=== PATIENT | male | born 1960 | race Caucasian/White ===

== ENCOUNTER 2020-11-17 17:35 | Emergency (ER) | payer MEDICAID, SELFPAY ==
[2020-11-17 17:35] VITALS: BP 142/86; PULSE 77; RESP 16; TEMP 36.8; O2SAT 98; BMI 23.6
--- NOTE | 2020-11-17 19:29 | PC.NURSE ---
pt attempted to walk out of exam room, refusing staff to obtain samples ordered by physician. Pt states I am done, I am leaving . Dr notified. Physician spoke with pt who agrees to sign AMA paperwork. Pt verbalized understanding of risks of leaving AMA and that he may return to ED to re-evaluated. Paperwork signed, witnessed by staff
--- NOTE | 2020-11-17 23:57 | W.ED.AMS ---
HPI - Altered Mental Status General: Chief Complaint: Altered Mental Status Stated Complaint: AMS Time Seen by Provider: 11/17/20 18:23 Source: patient and EMS Mode of arrival: EMS Limitations: no limitations History of Present Illness: HPI narrative: The patient is a 60-year-old male who was brought in by EMS with concerns for altered mental status. Apparently he was wandering in his shorts and so he was brought in for evaluation. In the ED the patient is alert and oriented and states he has no complaints. He says he does not want to be in the emergency department. I was able to convince him to allow us to run some test to see if he has any issues, he initially agreed but then later refused. He denies any chest pain, headaches, dizziness, shortness of breath. Review of Systems General: Reports: 10 or more systems reviewed and unremarkable except in HPI and below Const: Denies: fever(s), chills or body aches Eyes: Denies: change in vision or blurry vision ENMT: Denies: throat pain, enlarged tonsils, odynophagia, hoarseness, mouth pain or swelling of lips/tongue Card: Denies: palpitations, irregular heart rhythm, edema or swelling of feet/ankles Resp: Denies: dyspnea, productive cough or non-productive cough GI: Denies: abdominal pain, nausea or vomiting : Denies: flank pain, dysuria, urinary frequency, urinary urgency or urinary hesitancy Musc: Denies: neck pain, back pain or extremity swelling Skin/Breast: Denies: rash, pruritus or erythema Neuro: Denies: headache(s), numbness in extremities or weakness in extremities Endo: Denies: polyuria, polydipsia or tired all the time Physical Exam Const: COMMON NORMALS: no acute distress, average body habitus, patient oriented x3, no limitations, healthy appearing, alert and well nourished HENMT: COMMON NORMALS: normocephalic, atraumatic and moist oral mucous membranes HEAD & SCALP: normocephalic and atraumatic Eye: COMMON NORMALS: Equal, round and reactive pupils present, EOMs intact bilaterally, conjunctivae normal and no scleral icterus CONJUNCTIVA: Yes conjunctivae normal PUPIL: Yes Equal, round and reactive pupils present Neck/C-Spine: COMMON NORMALS: full ROM, supple, no meningeal signs, no JVD and No carotid bruits Chest: COMMONS NORMALS: normal inspection of the chest and normal palpation of entire chest wall Resp: COMMON NORMALS: normal respiratory effort, No retractions, No use of accessory muscles, clear to auscultation bilaterally and percussion normal AUSCULTATION: clear to auscultation bilaterally PERCUSSION: percussion normal Cardio: COMMON NORMALS: no JVD, regular rate, regular rhythm, S1 normal heart sound present, S2 normal heart sound present, No gallops present (Cardio), No clicks present (Cardio), No murmurs present (Cardio), No rub (Cardio) and Peripheral pulses 2+ throughout RATE: regular rate RHYTHM: regular rhythm HEART SOUNDS: S1 normal heart sound present and S2 normal heart sound present PERIPHERAL PULSES: Peripheral pulses 2+ throughout GI: COMMON NORMALS: Normal to inspection, nondistended, normoactive bowel sounds present, Soft to palpation, non-tender, No hepatosplenomegaly present, no masses and no bruits PALPATION: Yes Soft to palpation and Yes No hepatosplenomegaly present : COMMON NORMALS: Yes no CVA tenderness BLADDER/KIDNEY EXAM: Yes no CVA tenderness Back/Pelvis: COMMON NORMALS: no CVA tenderness Extremity: COMMON NORMALS: normal to inspection, full ROM, capillary refill normal, no calf tenderness and no pedal edema Neuro: COMMON NORMALS: patient oriented x3 SENSORIUM/ORIENTATION: Yes alert MENINGEAL SIGNS: Yes no meningeal signs Skin: COMMON NORMALS: no rashes or lesions noted, no wounds, turgor normal, no jaundice, no petechiae and no mottling GENERAL SKIN EXAM: no rashes or lesions noted and turgor normal Course Vital Signs: Vital signs: Vital Signs Temperature 98.2 F 11/17/20 17:35 Pulse Rate 77 11/17/20 17:35 Respiratory Rate 16 11/17/20 17:35 Blood Pressure 142/86 11/17/20 17:35 Pulse Oximetry 98 11/17/20 17:35 MDM - Altered Mental Status MDM Narrative: Medical decision making narrative: 60-year-old male who was brought in by EMS with concerns for altered mental status. When I evaluated the patient he was alert and oriented, was able to answer all my questions appropriately. He however did not want to be seen in the emergency department and refused testing, imaging, and the evaluation. He allowed me to examine him, initially agreed to be tested but then eventually declined. He says he does not like hospitals and doctors and so wanted to leave AGAINST MEDICAL ADVICE. I explained to him the risks involved including potential for a serious life threatening illness with medical cause serious morbidity and , however he still insisted on being discharged and signed out AGAINST MEDICAL ADVICE. Because he is alert oriented and is able in my opinion to make sound medical decisions he was allowed to sign out AGAINST MEDICAL ADVICE. Medical Records: Attestation: I reviewed the patient's medical records. Lab Data: Attestation: I reviewed the patient's lab results. Discharge Plan Discharge Patient Disposition: Left Against Medical Advice Clinical Impression: Wandering Coding Level of Care Code ED Energy Conservation Representative for Maria Antonia Lacy
== END 2020-11-17 19:32 | disposition left against medical advice (07) ==
LOC: ER 18:56
PROVIDERS: Emergency Provider Family Medicine
DX: Z91.83 Wandering in diseases classified elsewhere (principal); R41.82 Altered mental status, unspecified; Z53.21 Procedure and treatment not carried out due to patient leaving prior to being seen by health care provider
CPT/HCPCS: 12345; 99281

== ENCOUNTER 2020-11-26 21:06 | Emergency (ER) | payer MEDICAID, SELFPAY ==
--- NOTE | 2020-11-26 21:09 | XR_ITS ---
WS: [id number] Left wrist, 3 views, 11/26/2020 Clinical Data: fll Comparison: None. Findings: No fractures or dislocations are seen. The carpal bones are intact. There is no soft tissue swelling. The distal radius and ulna are not remarkable. XR/XR wrist LT min 3V* [id number] Impression: Negative left wrist.
--- NOTE | 2020-11-26 21:09 | XR_ITS ---
WS: [id number] Right wrist, 3 views, 11/26/2020 Clinical Data: fall Comparison: None. Findings: No fractures or dislocations are seen. The carpal bones are intact. There is no soft tissue swelling. The distal radius and ulna are not remarkable. There is calcification in the barrientos of the small vessels. XR/XR wrist RT min 3V* [id number] Impression: Negative right wrist.
--- NOTE | 2020-11-26 21:09 | CTR_ITS ---
PROCEDURE INFORMATION: Exam: CT Head Without Contrast Exam date and time: 11/26/2020 9:10 PM Age: 60 years old Clinical indication: Injury or trauma; Blunt trauma (contusions or hematomas); Patient HX: Fall with blow to back of head. ; Additional info: LYNNE TECHNIQUE: Imaging protocol: Computed tomography of the head without contrast. Radiation optimization: All CT scans at this facility use at least one of these dose optimization techniques: automated exposure control; mA and/or kV adjustment per patient size (includes targeted exams where dose is matched to clinical indication); or iterative reconstruction. COMPARISON: No relevant prior studies available. RADIATION DOSE METRICS: Total DLP (mGy-cm): 781.38 FINDINGS: Brain: Mild cerebral cortical atrophy. No intracranial hemorrhage. No intracranial mass. No mass effect on brain. No midline shift of brain. No basilar cisternal effacement. No acute brain ischemia. No cerebral sulcal effacement. Cerebral ventricles: No ventriculomegaly. Bones/joints: Unremarkable. No acute fracture. Paranasal sinuses: Visualized sinuses are unremarkable. No fluid levels. Mastoid air cells: Visualized mastoid air cells are well aerated. Soft tissues: Unremarkable. CT/CT head wo con* [id number] IMPRESSION: Negative for intracranial injury. Radiation Dose CTDIVOL = (mGy): DLP = 781.38 (mGy-cm)
[2020-11-26 21:13] VITALS: BP 158/84; PULSE 110; RESP 18; TEMP 36.6; O2SAT 96; BMI 25.9
--- NOTE | 2020-11-26 22:00 | W.ED.FALL ---
HPI - Fall General: Chief Complaint: Fall Stated Complaint: FELL ON ICE, BILATERAL WRIST PAIN, HEAD PAIN Time Seen by Provider: 11/26/20 21:58 Source: patient Mode of arrival: ambulatory Limitations: no limitations History of Present Illness: HPI Narrative: Patient is a 60-year-old male who presents to ED today for evaluation following a slip and fall. Patient tells me he was on a sidewalk walking when he accidentally slipped and fell on ice. Patient states he struck the back of his head. There was no LOC. Patient is complaining of bilateral wrist pain. He denies neck or back pain. Patient has been ambulatory without difficulty since the fall. complaint: fall Onset (ago): hour(s) Fall from: standing Fall witnessed: no Place fall occurred: street Loss of consciousness: None Prolonged down time: no Symptoms prior to fall: none Context: tripped/slipped Location of injury: head Location of injury - extremities: Bilateral: arm (wrist ) Associated symptoms-after fall: Reports no associated symptoms and headache(s); Denies abdominal pain, chest pain, confusion, difficulty walking or neck pain Review of Systems Eyes: Denies: change in vision, blurry vision, photophobia, floaters or seeing flashes Card: Denies: chest pain Resp: Denies: dyspnea GI: Denies: abdominal pain, nausea or vomiting Musc: Reports: joint pain (bilateral wrist); Denies: neck pain, back pain, extremity pain, extremity swelling or joint swelling Neuro: Reports: headache(s); Denies: numbness in extremities, weakness in extremities, sensory changes, difficulty walking, dizziness, confusion, Slurred speech present or seizure-like activity Physical Exam Const: COMMON NORMALS: no acute distress, average body habitus, patient oriented x3, no limitations, healthy appearing, alert and well nourished GENERAL APPEARANCE: cooperative ORIENTATION/CONSCIOUSNESS: Yes awake, Yes oriented to person, Yes oriented to place and Yes oriented to time HENMT: COMMON NORMALS: normocephalic and atraumatic HEAD & SCALP: normocephalic and atraumatic Neck/C-Spine: COMMON NORMALS: full ROM CERVICAL SPINE: Yes cervical ROM normal, No Cervical spine tenderness and No Paracervical muscle tenderness Chest: COMMONS NORMALS: normal inspection of the chest and normal palpation of entire chest wall Resp: COMMON NORMALS: normal respiratory effort and clear to auscultation bilaterally AUSCULTATION: clear to auscultation bilaterally Cardio: COMMON NORMALS: regular rate and regular rhythm RATE: regular rate RHYTHM: regular rhythm Back/Pelvis: COMMON NORMALS: thoracic and lumbar spine normal to inspection, no thoracic nor lumbar tenderness and thoraco-lumbar ROM normal Extremity: GENERAL: Yes normal exam except as noted OTHER: TTP R wrist joint; pt maintains full ROM; NV intact; he has tenderness throughout L wrist joint; dec ROM-very poor effort noted by patient; no deformity; NV intact Neuro: DIPESH COMA SCALE: document [facility] findings Dipesh coma scale eye opening: Spontaneous Dipesh coma scale verbal response: Orientated Grace coma scale motor response: Obey commands Grace coma scale total score: 15 COMMON NORMALS: patient oriented x3, CN's II-XII intact bilaterally, moves all extremities, no focal motor deficits, no sensory deficits noted and gait normal SENSORIUM/ORIENTATION: Yes alert, Yes oriented to person, Yes oriented to place and Yes oriented to time Skin: COMMON NORMALS: no rashes or lesions noted GENERAL SKIN EXAM: no rashes or lesions noted Course Vital Signs: Vital signs: Vital Signs Temperature 97.9 F 11/26/20 21:13 Pulse Rate 110 H 11/26/20 21:13 Respiratory Rate 18 11/26/20 21:13 Blood Pressure 158/84 11/26/20 21:13 Pulse Oximetry 96 11/26/20 21:13 MDM - Fall Imaging Data^: CT Head: Radiologist's impression: [address] [address] [address] Scan Report Signed Patient: David Harvey Unit #: [id number] : 1960 Age/Sex: 60 / M ADM Date: 11/26/20 Loc: ER Room/Bed: Attending Dr: Ordering Provider/Ordering MD: Ariadne Young MD Date of Service: 11/26/20 Procedure(s): CT head wo con* [id number] Accession Number(s): [id number] Report Number: [id number] PROCEDURE INFORMATION: Exam: CT Head Without Contrast Exam date and time: 11/26/2020 9:10 PM Age: 60 years old Clinical indication: Injury or trauma; Blunt trauma (contusions or hematomas); Patient HX: Fall with blow to back of head. ; Additional info: LYNNE TECHNIQUE: Imaging protocol: Computed tomography of the head without contrast. Radiation optimization: All CT scans at this facility use at least one of these dose optimization techniques: automated exposure control; mA and/or kV adjustment per patient size (includes targeted exams where dose is matched to clinical indication); or iterative reconstruction. COMPARISON: No relevant prior studies available. RADIATION DOSE METRICS: Total DLP (mGy-cm): 781.38 FINDINGS: Brain: Mild cerebral cortical atrophy. No intracranial hemorrhage. No intracranial mass. No mass effect on brain. No midline shift of brain. No basilar cisternal effacement. No acute brain ischemia. No cerebral sulcal effacement. Cerebral ventricles: No ventriculomegaly. Bones/joints: Unremarkable. No acute fracture. Paranasal sinuses: Visualized sinuses are unremarkable. No fluid levels. Mastoid air cells: Visualized mastoid air cells are well aerated. Soft tissues: Unremarkable. CT/CT head wo con* [id number] IMPRESSION: Negative for intracranial injury. Radiation Dose CTDIVOL = (mGy): DLP = 781.38 (mGy-cm) Dictated By: Rahul Rodas Signed By: Rahul Rodas Signed Date/Time: 11/26/202141 DD/ 40 XR L and R wrist : My impression: NAD Discharge Plan Discharge Patient Disposition: Home Clinical Impression: Bilateral wrist pain Fall from slipping on ice Qualifiers: Encounter type: initial encounter Qualified Code(s): W00.9XXA - Unspecified fall due to ice and snow, initial encounter Contusion of scalp Qualifiers: Encounter type: initial encounter Qualified Code(s): S00.03XA - Contusion of scalp, initial encounter Condition: Stable Discharge Orders: Discharge ED (Routine); Ordered 11/26/20 Ordered By: Alessia Domínguez Referrals: Thomas Gan [Primary Care Provider] - Patient Instructions: Opioid Safety Activity Restrictions/Additional Instructions: [facility] is committed to fighting the nationwide opiate epidemic. We are providing ALL patients with information regarding opiate safety. If you received opiate pain medication during your stay or if you received a prescription for opiate pain medication-please review this handout. If not, you may disregard. Thank you. Coding Level of Care Code ED Geothermal Powerplant Mechanic Helper for Chg Fwd Exam Comprehensive
== END 2020-11-26 22:47 | disposition home or self-care (01) ==
PROVIDERS: Emergency Provider Physician Assistant; PCP Family Medicine
DX: S00.03XA Contusion of scalp, initial encounter (principal); M25.532 Pain in left wrist; M25.531 Pain in right wrist; W00.0XXA Fall on same level due to ice and snow, initial encounter
CPT/HCPCS: 29125; 70450; 73110; 99283

== ENCOUNTER → 2020-12-04 09:43 | Outpatient (BNVA) | payer MEDICAID, SELFPAY | PROVIDERS: PCP Family Medicine; Visit Provider Counselor Professional | DX: F31.12 Bipolar disorder, current episode manic without psychotic features, moderate (principal) | CPT/HCPCS: 90791 ==

== ENCOUNTER 2020-12-06 15:33 | Emergency (ER) | payer MEDICAID, SELFPAY ==
[2020-12-06 15:38] VITALS: BP 147/76; PULSE 104; RESP 16; TEMP 36.9; O2SAT 96; BMI 25.2
--- NOTE | 2020-12-06 16:06 | ED_ITS ---
HPI - Extremity Problem General: Chief complaint: Extremity Problem,Nontraumatic Stated complaint: BLE PROBLEMS Time Seen by Provider: 12/06/20 15:45 Source: patient Mode of arrival: ambulatory Limitations: no limitations History of Present Illness: HPI Narrative: Patient comes in today for complaints of dry skin and blisters to his his feet. Patient has been walking for the last 1 month for a protest. Patient does have a history of bipolar disorder. Patient is calm and rational during the exam. Patient denies any wish to harm himself or others. Patient complains of some blisters to his feet and dry skin. Patient appears well. Patient appears in no acute distress. Review of Systems General: Reports: 10 or more systems reviewed and unremarkable except in HPI and below Skin/Breast: Reports: other (Blisters to his feet, and dry skin to his lower extremities.) Physical Exam Const: COMMON NORMALS: no acute distress and patient oriented x3 GENERAL APPEARANCE: cooperative HENMT: COMMON NORMALS: normocephalic and Normal external nose present HEAD & SCALP: normal to inspection and normocephalic NOSE: Normal external nose present Eye: GENERAL EYE: appearance normal, both eyes and all related structures Neck/C-Spine: COMMON NORMALS: full ROM Lymph: LYMPHATIC: no lymphadenopathy noted Chest: COMMONS NORMALS: normal inspection of the chest Resp: COMMON NORMALS: normal respiratory effort EFFORT & INSPECTION: Yes able to speak in complete sentences Cardio: COMMON NORMALS: regular rate and regular rhythm RATE: regular rate RHYTHM: regular rhythm GI: COMMON NORMALS: non-tender Extremity: COMMON NORMALS: normal to inspection Neuro: COMMON NORMALS: patient oriented x3 and moves all extremities Psych: COMMON NORMALS: mental status grossly normal and cooperative Skin: NARRATIVE SKIN EXAM: Patient has some significantly dry flaking skin to the lower extremities bilaterally, hands, and dorsal feet. Patient also has some blisters to the toes of each of his feet. No signs of infection is noted. Course Vital Signs: Vital signs: Vital Signs Temperature 98.5 F 12/06/20 15:38 Pulse Rate 104 H 12/06/20 15:38 Respiratory Rate 16 12/06/20 15:38 Blood Pressure 147/76 12/06/20 15:38 Pulse Oximetry 96 12/06/20 15:38 MDM - Extremity (Nontraumatic) MDM Narrative: Medical decision making narrative: Pleasant gentleman comes in today for complaints of dry skin and itching and some blisters to his feet. Examination of the blisters note no significant redness or inflammation. They appear to be healing blisters secondary to correction. Patient reported that he has been walking quite a bit over the last 2 weeks protesting a walker for hope . Patient has significantly dry skin to his hands and to his lower extremities. Pulses are intact. No signs of significant injury or illness. Differential diagnosis includes stasis dermatitis, Delatorre itch, eczema, friction blisters, diabetic ulcers. Patient denied diabetes. Wounds appear healing without any signs of infection. Dry skin is probably due to patient's exposure to the cold causing delatorre itch/eczema type syndrome. We will prescribe some Lac-Hydrin lotion for patient to use twice a day to his skin to help with the itch. I also discussed the use of good emollient lotions or Vaseline. I reviewed care instructions for friction blisters including changing socks frequently and resting feet frequently. Patient reported understanding of care plan and need for follow-up or return. Discharge Plan Discharge Patient Disposition: Home Clinical Impression: Winter itch Blister of foot Qualifiers: Encounter type: initial encounter Laterality: unspecified laterality Qualified Code(s): S90.829A - Blister (nonthermal), unspecified foot, initial encounter Condition: Stable Prescriptions: New Lac-Hydrin Five 5 % lotion 1 applic topical BID PRN (Reason: dry skin) Qty: 226 RF: 1 No Action gabapentin 400 mg capsule 400 mg PO DAILY RF: 0 baclofen 10 mg tablet 10 mg PO DAILY RF: 0 aripiprazole [Abilify] 5 mg tablet 5 mg PO DAILY RF: 0 hydrocodone-acetaminophen 10-300 mg tablet 1 tab PO Q8H PRNRF: 0 omeprazole 20 mg capsule,delayed release(DR/EC) 20 mg PO DAILY RF: 0 omega-3 fatty acids [Fish Oil Concentrate] 1,000 mg capsule 1,000 mg PO DAILY RF: 0 trazodone 150 mg tablet 150 mg PO DAILY RF: 0 Centrum Silver Men 300-600-300 mcg tablet 1 tab PO DAILY RF: 0 Discharge Orders: Discharge ED (Routine); Ordered 12/06/20 Ordered By: Calderon Garibay Referrals: Thomas Gan [Primary Care Provider] - Discharge Diet: Usual diet Discharge Activity: Increase activity as tolerated Patient Instructions: Eczema (ED), Opioid Safety Activity Restrictions/Additional Instructions: Use a good lotion or Vaseline to the skin to keep the skin moist during the winter months. This will help significantly with itching of the skin. Change socks frequently and try to get properly fitting shoes. Drink plenty of water. Follow-up with primary care. Return to the emergency department for new concerns. Coding Level of Care Code ED Air Launch Weapons Technician for Maria Antonia Lacy
--- NOTE | 2020-12-07 14:01 | DCPLANNER ---
scanning manager had message to speak with patient due to not having a place to stay and being homeless. scanning manager called phone number [phone], unable to speak with patient and unable to leave a voicemail for patient. Voicemail box was full.
== END 2020-12-06 16:23 | disposition home or self-care (01) ==
PROVIDERS: Emergency Provider Nurse Practitioner Family; PCP Family Medicine
DX: L29.8 Other pruritus (principal); S90.822A Blister (nonthermal), left foot, initial encounter; S90.821A Blister (nonthermal), right foot, initial encounter; X58.XXXA Exposure to other specified factors, initial encounter
CPT/HCPCS: 99281

== ENCOUNTER 2020-12-06 23:13 | Emergency (ER) | payer MEDICAID, SELFPAY ==
--- NOTE | 2020-12-06 23:18 | ED_ITS ---
HPI - Extremity Problem General: Chief complaint: General Medical Stated complaint: WRIST PAIN Time Seen by Provider: 12/06/20 23:18 Source: patient and EMS Mode of arrival: ambulatory Limitations: no limitations History of Present Illness: HPI Narrative: 60-year-old male patient presents to the emergency department via EMS. He is complaining of bilateral feet pain. He reports has walked from [facility] to the [facility], has been kicked out of the homeless senior living and has no place to go to stay the night. He presents to the emergency department due to continued pain of his feet and inability to fill his medication prescribed earlier today. He denies further injury or new complaints. MD Complaint: extremity pain Location: left, right and lower extremity Quality: aching Relieving factors: immobilization and rest Exacerbating factors: weight bearing and walking Associated symptoms: Reports no associated symptoms; Deny chest pain, fever(s) or rash Context: other (Homeless status, large amount of walking) Review of Systems General: Reports: 10 or more systems reviewed and unremarkable except in HPI and below Const: Denies: fever(s), chills or diaphoresis Eyes: Denies: blurry vision or eye redness ENMT: Denies: throat pain, dental pain or disequilibrium Card: Denies: chest pain, palpitations or irregular heart rhythm Resp: Denies: dyspnea, productive cough, non-productive cough or wheezing GI: Denies: abdominal pain, nausea or vomiting : Denies: dysuria Musc: Reports: joint stiffness (Left wrist); Denies: neck pain, back pain, joint pain, muscle cramps or muscle weakness Skin/Breast: Reports: pruritus, erythema, skin tenderness and changes in skin color; Denies: rash Neuro: Denies: headache(s), weakness in extremities or behavioral changes Psych: Denies: anxiety, depression or change in appetite Warren/Lymph: Denies: easy bruising Physical Exam Const: COMMON NORMALS: no acute distress, patient oriented x3, healthy appearing and alert GENERAL APPEARANCE: cooperative, comfortable and well hydrated HENMT: COMMON NORMALS: normocephalic, Normal external nose present and moist oral mucous membranes HEAD & SCALP: normocephalic NOSE: Normal external nose present Eye: COMMON NORMALS: Equal, round and reactive pupils present and EOMs intact bilaterally GENERAL EYE: appearance normal, both eyes and all related structures PUPIL: Yes Equal, round and reactive pupils present Neck/C-Spine: COMMON NORMALS: full ROM and no lymphadenopathy GENERAL: Yes normal visual inspection and Yes trachea midline CERVICAL SPINE: Yes cervical ROM normal Lymph: LYMPHATIC: no lymphadenopathy noted Chest: COMMONS NORMALS: normal inspection of the chest and normal palpation of entire chest wall Resp: COMMON NORMALS: normal respiratory effort and clear to auscultation bilaterally AUSCULTATION: clear to auscultation bilaterally Cardio: COMMON NORMALS: regular rhythm, S1 normal heart sound present and S2 normal heart sound present RHYTHM: regular rhythm HEART SOUNDS: S1 normal heart sound present and S2 normal heart sound present GI: COMMON NORMALS: Soft to palpation and non-tender INSPECTION: Yes normal to inspection PALPATION: Yes Soft to palpation : COMMON NORMALS: Yes no CVA tenderness BLADDER/KIDNEY EXAM: Yes no CVA tenderness Back/Pelvis: COMMON NORMALS: no CVA tenderness and thoracic and lumbar spine normal to inspection Extremity: COMMON NORMALS: normal to inspection, full ROM, capillary refill normal, no joint enlargement, no clubbing, cyanosis or edema, no calf tenderness and no pedal edema GENERAL: Yes normal exam except as noted OTHER: Full range of motion of the left wrist, no acute deformities noted Neuro: COMMON NORMALS: patient oriented x3 and no focal motor deficits SENS ORIUM/ORIENTATION: Yes alert SPEECH: speech normal GAIT: Yes Normal gait present MOTOR EXAM: 5/5 motor strength present throughout Psych: COMMON NORMALS: mental status grossly normal, Normal thought process present and cooperative ACTIVITY/MOTOR BEHAVIOR: Yes appropriate eye contact THOUGHT PROCESS: Normal thought process present Skin: COMMON NORMALS: no rashes or lesions noted, turgor normal, no petechiae and no mottling GENERAL SKIN EXAM: no rashes or lesions noted, elasticity normal, turgor normal and dry skin (To the upper and lower extremities) OTHER: Various blisters to the bilateral toes on both feet, distal tip various stages of healing. No cellulitis, erythema/drainage noted. Course Vital Signs: Vital signs: Vital Signs Temperature 98.3 F 12/06/20 23:20 Pulse Rate 98 12/06/20 23:20 Respiratory Rate 16 12/06/20 23:20 Blood Pressure 132/70 12/06/20 23:20 Pulse Oximetry 98 12/06/20 23:20 MDM - Extremity (Nontraumatic) MDM Narrative: Medical decision making narrative: 60-year-old male presents to the emergency department due to inability to walk anymore. He states has walked and jogged from the [place] to [facility], states [facility] was closed and was not able to obtain prescribed medication from earlier visit. He states his feet hurt, states he will no longer walk and needs to rest. He has not sustained injury, he has no new complaints, bilateral lower feet with blisters, various stages of healing, no signs and symptoms of infection, shoes are poor fitting. I have placed social service consult as patient is homeless and has nowhere to go. He was administered ibuprofen here in the ED. Discharge Plan Discharge Patient Disposition: Home Clinical Impression: Winter itch Blister of foot Qualifiers: Encounter type: initial encounter Laterality: unspecified laterality Qualified Code(s): S90.829A - Blister (nonthermal), unspecified foot, initial encounter Condition: Stable Prescriptions: No Action gabapentin 400 mg capsule 400 mg PO DAILY RF: 0 baclofen 10 mg tablet 10 mg PO DAILY RF: 0 aripiprazole [Abilify] 5 mg tablet 5 mg PO DAILY RF: 0 hydrocodone-acetaminophen 10-300 mg tablet 1 tab PO Q8H PRNRF: 0 omeprazole 20 mg capsule,delayed release(DR/EC) 20 mg PO DAILY RF: 0 omega-3 fatty acids [Fish Oil Concentrate] 1,000 mg capsule 1,000 mg PO DAILY RF: 0 trazodone 150 mg tablet 150 mg PO DAILY RF: 0 Centrum Silver Men 300-600-300 mcg tablet 1 tab PO DAILY RF: 0 Lac-Hydrin Five 5 % lotion 1 applic topical BID PRN (Reason: dry skin) Qty: 226 RF: 1 Discharge Orders: Discharge ED (Routine); Ordered 12/06/20 Ordered By: Irma Jamison Referrals: Thomas Gan [Primary Care Provider] - Discharge Diet: Usual diet Discharge Activity: Resume usual activity Patient Instructions: Lanolin (On the skin), Opioid Safety, Skin Blisters Activity Restrictions/Additional Instructions: Follow-up with your primary care physician if not improved in 4 to 5 days Wear appropriate fitting shoes to help prevent blisters of the feet Obtain prescribed medication and apply as directed Coding Level of Care Code ED Conditioner Tender for Markg Fwd Exam Comprehensive
[2020-12-06 23:20] VITALS: BP 132/70; PULSE 98; RESP 16; TEMP 36.8; O2SAT 98
[2020-12-07] MEDS: ibuprofen 600 mg Tablet PO
== END 2020-12-07 00:12 | disposition home or self-care (01) ==
PROVIDERS: Emergency Provider Nurse Practitioner Family; PCP Family Medicine
DX: L29.8 Other pruritus (principal); S90.822A Blister (nonthermal), left foot, initial encounter; S90.821A Blister (nonthermal), right foot, initial encounter; X58.XXXA Exposure to other specified factors, initial encounter
CPT/HCPCS: 99282

== ENCOUNTER 2020-12-12 15:21 | Emergency (ER) | payer MEDICAID, SELFPAY ==
[2020-12-12 15:31] VITALS: BP 138/72; PULSE 76; RESP 18; TEMP 37.1; O2SAT 97; BMI 24.3
--- NOTE | 2020-12-12 15:38 | XRR_ITS ---
PROCEDURE INFORMATION: Exam: XR Chest Exam date and time: 12/12/2020 3:39 PM Age: 60 years old Clinical indication: Cough and dyspnea; Additional info: Dyspnea/cough TECHNIQUE: Imaging protocol: XR of the chest Views: 1 view. COMPARISON: CR Ribs LEFT w PA Chest [id number] 07/18/2014 9:14 AM FINDINGS: Lungs: Unremarkable. No consolidation. Pleural spaces: Unremarkable. No pleural effusion. No pneumothorax. Heart/Mediastinum: Unremarkable. No cardiomegaly. Bones/joints: Unremarkable. XR/XR chest 1V portable [id number] IMPRESSION: 1. No acute findings. 2. No significant change from comparison on 07/18/2014.
--- NOTE | 2020-12-12 15:38 | ECG_ITS ---
[facility] Test Date: 2020-12-12 Pat Name: David Harvey Department: Room: Gender: Male Journal Box Inspector: : 1960 Requested By: Reinaldo Bustos Order Number: [id number] Ollie MD: Jose Watson M.D. Measurements Intervals [place] Rate: 68 P: DC: QRS: 29 QRSD: 98 T: 43 QT: 392 QTc: 418 Interpretive Statements SINUS RHYTHM WITH 2ND DEGREE AV BLOCK, MOBITZ TYPE II POSSIBLE RIGHT VENTRICULAR CONDUCTION DELAY [RSR (QR) IN V1/V2] No previous ECG available for comparison Electronically Signed On 12-13-2020 17:11:02 QUICK PRINT OPERATOR by Jose Watson M.D. [id number]
[2020-12-12] MEDS: lidocaine 2% viscous 15 ML, aluminum-mag hydrox-simethicon 30 ML, sucralfate oral liq 1 GM PO (15:49)
--- NOTE | 2020-12-12 16:36 | ED_ITS ---
HPI - SOB/Dyspnea General: Chief Complaint: Shortness of Breath/Dyspnea Stated Complaint: SOB Time Seen by Provider: 12/12/20 15:33 History of Present Illness: HPI Narrative: 60-year-old male presents emergency room with complaint of shortness of breath at times. He had some chest discomfort that began after he had begun eating. Stotler is bothering him now. He is not previously had any known heart disease. No previous MS and previous angioplasty. MD elicited complaint: shortness of breath Timing: intermittent Severity: mild Exacerbating factors: nothing Relieving factors: nothing Associated symptoms: Deny abdominal pain, chest congestion, chest pain, cough, diaphoresis, dizziness, extremity pain, fever(s), hemoptysis, lightheadedness, myalgias, nausea, orthopnea, palpitations, paresthesias, polydipsia, polyuria, rash, sense of impending doom, syncope or vomiting Treatment prior to arrival: none Review of Systems Const: Denies: fever(s) or diaphoresis ENMT: Denies: throat pain, ear or mastoid pain, nasal discharge or nasal congestion Card: Denies: chest pain, palpitations, lightheadedness, syncope or orthopnea Resp: Denies: hemoptysis or chest congestion GI: Denies: abdominal pain, nausea or vomiting : Denies: flank pain, dysuria, urinary frequency or urinary urgency Musc: Denies: extremity pain Skin/Breast: Denies: rash or pruritus Neuro: Denies: dizziness Endo: Denies: polyuria or polydipsia Physical Exam Const: COMMON NORMALS: no acute distress GENERAL APPEARANCE: cooperative and comfortable ORIENTATION/CONSCIOUSNESS: Yes awake, Yes oriented to person, Yes oriented to place and Yes oriented to time HENMT: COMMON NORMALS: normocephalic, atraumatic and hearing grossly normal bilaterally HEAD & SCALP: normocephalic and atraumatic Eye: COMMON NORMALS: Equal, round and reactive pupils present, EOMs intact bilaterally, conjunctivae normal and no scleral icterus CONJUNCTIVA: Yes conjunctivae normal PUPIL: Yes Equal, round and reactive pupils present Neck/C-Spine: COMMON NORMALS: full ROM, no lymphadenopathy, supple and no JVD Lymph: LYMPHATIC: no lymphadenopathy noted and no lymphedema noted Resp: COMMON NORMALS: normal respiratory effort, No retractions, No use of accessory muscles and clear to auscultation bilaterally AUSCULTATION: clear to auscultation bilaterally Cardio: COMMON NORMALS: no JVD and No murmurs present (Cardio) RATE: bradycardic RHYTHM: abnormal rhythm (Mobitz type 2 second-degree) GI: COMMON NORMALS: Soft to palpation and No hepatosplenomegaly present AUSCULTATION: Yes normoactive bowel sounds PALPATION: Yes Soft to palpation, No Tenderness to palpation present (GI), No Guarding due to palpation present (GI) and Yes No hepatosplenomegaly present Extremity: COMMON NORMALS: normal to inspection, capillary refill normal, no clubbing, cyanosis or edema, no calf tenderness and no pedal edema Neuro: SENSORIUM/ORIENTATION: Yes oriented to person, Yes oriented to place and Yes oriented to time Skin: COMMON NORMALS: no rashes or lesions noted GENERAL SKIN EXAM: no rashes or lesions noted Course Vital Signs: Vital signs: Vital Signs Temperature 98.7 F 12/12/20 15:31 Pulse Rate 76 12/12/20 15:31 Respiratory Rate 18 12/12/20 15:31 Blood Pressure 138/72 12/12/20 15:31 Pulse Oximetry 97 12/12/20 15:31 MDM - SOB/Dyspnea MDM Narrative: Medical decision making narrative: Reviewed EKG with cardiology. They recommended observation. Discussed with the patient he states he felt fine and did not want to stay he absolutely refused discussed with him that this could be a potentially life-threatening arrhythmia if it develops to a full heart block. Also advised him cardiology recommended that he state he refuses. Did advise the patient he can is welcome to return at any point. Lab Data: Labs: Lab Results 12/12/20 12/12/20 12/12/20 Range/Units 17:00 17:00 17:00 WBC 3.8 L (4.0-10.0) 10^3/ uL RBC 3.88 L (4.1-5.3) 10^6/u L Hgb 11.8 (11.7-16.6) g/dL Hct 36.6 L (42.0-52.0) % MCV 94.3 H (80-94) fL MCH 30.4 (28.0-34.0) pg MCHC 32.2 (30.0-36.0) g/dL RDW 13.5 (12.1-15.1) % Plt Count 211 (130-400) 10^3/c mm MPV 9.0 (7.4-10.4) fL Neut % (Auto) 49.7 % Lymph % (Auto) 38.5 % [place] % (Auto) 8.6 % Eos % (Auto) 2.1 % Baso % (Auto) 0.8 % Neut # (Auto) 1.90 (1.8-7.7) 10^3/u L Lymph # (Auto) 1.5 (0.8-4.8) 10^3/u L [place] # (Auto) 0.3 (0.2-0.9) 10^3/u L Eos # (Auto) 0.1 (0.0-0.8) 10^3/u L Baso # (Auto) 0.0 (0.0-0.1) 10^3/u L Nucleated RBC % (a uto) 0 % Nucleated RBCs # 0.0 /100WBC Sodium 141 (136-145) mmol/L Potassium 3.7 (3.5-5.1) mmol/L Chloride 107 (98-107) mmol/L Carbon Dioxide 27 (22-29) mmol/L Anion Gap 10.7 (5-19) BUN 9 (6-20) mg/dL Creatinine 0.6 L (0.7-1.2) mg/dL GFR Calculation 137.9 H (90-130) mL/min Glucose 83 (65-115) mg/dL Calculated Osmolal ity 290 (285-295) mOsm/k g Calcium 8.5 (8.5-10.5) mg/dL Total Bilirubin 0.3 (0.15-1.2) mg/dL AST 16 (0-40) U/L ALT 14 (0-41) U/L Alkaline Phosphata se 125 (40-130) IU/L Troponin T Baselin e 10 (0-15) ng/L Total Protein 6.1 L (6.6-8.7) g/dL Albumin 3.3 L (3.5-5.2) g/dL Globulin 2.8 (1.3-4.6) g/dL Discharge Plan Discharge Patient Disposition: Left Against Medical Advice Clinical Impression: Second degree heart block Condition: Stable Prescriptions: No Action gabapentin 400 mg capsule 400 mg PO DAILY@0600 RF: 0 baclofen 10 mg tablet 10 mg PO DAILY RF: 0 aripiprazole [Abilify] 5 mg tablet 5 mg PO DAILY@0600 RF: 0 hydrocodone-acetaminophen 10-300 mg tablet 1 tab PO Q8H PRN (Reason: Pain) RF: 0 omeprazole 20 mg capsule,delayed release(DR/EC) 20 mg PO DAILY@0600 RF: 0 trazodone 150 mg tablet 150 mg PO DAILY@2200 RF: 0 Referrals: Thomas Gan [Primary Care Provider] - Discharge Diet: Usual diet Discharge Activity: Limit activity as instructed Patient Instructions: Opioid Safety Activity Restrictions/Additional Instructions: Of a potentially dangerous heart arrhythmia. I would recommend that you stay in the hospital for further evaluation. You have elected to leave AGAINST MEDICAL ADVICE you are welcome to return at any time to be reevaluated and admitted for further testing. Coding Level of Care Code ED Intelligence Applications for Maria Antonia Lacy
[2020-12-12 17:25] LABS: Basophils % 0.8 %; Eosinophils # 0.1 10^3/uL (0.0-0.8); Eosinophils % 2.1 %; Hematocrit 36.6 % (42.0-52.0); Hemoglobin 11.8 g/dL (11.7-16.6); Lymphocytes # 1.5 10^3/uL (0.8-4.8); Lymphocytes % 38.5 %; Mean Corpuscular HGB Conc 32.2 g/dL (30.0-36.0); Mean Corpuscular Hemoglobin 30.4 pg (28.0-34.0); Mean Corpuscular Volume 94.3 fL (80-94); Monocytes # 0.3 10^3/uL (0.2-0.9); Monocytes % 8.6 %; Neutrophils % 49.7 %; Nucleated Red Blood Cells % 0 %; Platelet Count 211 10^3/cmm (130-400); Red Blood Count 3.88 10^6/uL (4.1-5.3); Red Cell Distribution Width 13.5 % (12.1-15.1); White Blood Count 3.8 10^3/uL (4.0-10.0)
--- NOTE | 2020-12-12 17:35 | P.HP_ITS ---
Providers/Chief Complaint Primary Care Provider: Thomas Gan Chief Complaint: SOB History of Present Illness David Harvey is a 60 year old male Medications/Allergies Home Medications Medication Instructions Recorded Confirmed Last Taken Type aripiprazole 5 mg tablet 5 mg PO DAILY@0600 12/04/20 12/12/20 12/12/20 History baclofen 10 mg tablet 10 mg PO DAILY 12/04/20 12/12/20 12/12/20 History gabapentin 400 mg capsule 400 mg PO DAILY@0600 12/04/20 12/12/20 12/12/20 History hydrocodone 10 mg-acetaminophen 1 tab PO Q8H PRN 12/04/20 12/12/20 12/12/20 History 300 mg tablet omeprazole 20 mg capsule,delayed 20 mg PO DAILY@0600 12/04/20 12/12/20 12/12/20 History release trazodone 150 mg tablet 150 mg PO DAILY@2200 12/04/20 12/12/20 12/11/20 History Allergies Allergy/AdvReac Type Severity Reaction Status Date / Time black pepper AdvReac Mild can't Verified 12/04/20 11:12 breathe Vitals/I&O/Wt Last Vital Signs Temp 98.7 F 12/12/20 15:31 Pulse 76 12/12/20 15:31 Resp 18 12/12/20 15:31 BP 138/72 12/12/20 15:31 Pulse Ox 97 12/12/20 15:31 Weight last 48 hrs Weight 72.575 kg Data : 12/12/20 17:00 12/12/20 17:00 Coding Level of Care Code Acute Medical Affairs Director for Maria Antonia Lacy
[2020-12-12 17:40] LABS: Alanine Aminotransferase 14 U/L (0-41); Albumin Level 3.3 g/dL (3.5-5.2); Alkaline Phosphatase 125 IU/L (40-130); Anion Gap 10.7 (5-19); Aspartate Amino Transferase 16 U/L (0-40); Blood Urea Nitrogen 9 mg/dL (6-20); Calcium 8.5 mg/dL (8.5-10.5); Carbon Dioxide 27 mmol/L (22-29); Chloride 107 mmol/L (98-107); Globulin 2.8 g/dL (1.3-4.6); Glomerular Filtration Rate 137.9 mL/min (90-130); Glucose 83 mg/dL (65-115); Osmolality Calculated 290 mOsm/kg (285-295); Potassium 3.7 mmol/L (3.5-5.1); Sodium 141 mmol/L (136-145); Total Bilirubin 0.3 mg/dL (0.15-1.2); Total Protein 6.1 g/dL (6.6-8.7)
[2020-12-12 17:53] LABS: Troponin(5th) Baseline 10 ng/L (0-15)
== END 2020-12-12 17:54 | disposition left against medical advice (07) ==
PROVIDERS: Emergency Provider Family Medicine; PCP Family Medicine
DX: I44.1 Atrioventricular block, second degree (principal); Z53.21 Procedure and treatment not carried out due to patient leaving prior to being seen by health care provider
CPT/HCPCS: 71045; 80053; 84484; 85025; 93005; 99283

== ENCOUNTER → 2021-01-06 07:42 | Outpatient (BNVA) | payer MEDICAID, SELFPAY | PROVIDERS: PCP Family Medicine; Visit Provider Psychiatry & Neurology Psychiatry | DX: F33.2 Major depressive disorder, recurrent severe without psychotic features (principal); F41.1 Generalized anxiety disorder; F60.9 Personality disorder, unspecified; F40.10 Social phobia, unspecified; F10.21 Alcohol dependence, in remission; F14.21 Cocaine dependence, in remission; F12.20 Cannabis dependence, uncomplicated | CPT/HCPCS: 99204 ==

== ENCOUNTER 2021-01-09 11:31 | Observation (INO) | payer MEDICAID, SELFPAY ==
[2021-01-09] VITALS (9 sets, daily range): BP systolic 93–178; BP diastolic 47–77; PULSE 68–92; RESP 15–20; TEMP 36.2–37.1; O2SAT 93–97; BMI 24.7
--- NOTE | 2021-01-09 12:45 | ECG_ITS ---
[facility] ED Test Date: 2021-01-09 Pat Name: David Harvey Department: Room: 259 Gender: Male Claim Agent: : 1960 Requested By: Evelio Sims Order Number: [id number] Levin MD: Sherron Hilario M.D. Measurements Intervals [place] Rate: 78 P: 34 FL: 157 QRS: 45 QRSD: 94 T: 54 QT: 386 QTc: 441 Interpretive Statements SINUS RHYTHM Compared to ECG 01/09/2021 14:55:12 No significant changes Electronically Signed On 01-14-2021 17:24:05 CDT by Sherron Hilario M.D. [id number]
--- NOTE | 2021-01-09 12:45 | XRR_ITS ---
PROCEDURE INFORMATION: Exam: XR Chest Exam date and time: 01/09/2021 12:57 PM Age: 60 years old Clinical indication: Chest pain. Lightheaded/dizziness on exertion. TECHNIQUE: Imaging protocol: XR of the chest Views: 1 view. COMPARISON: CR (CHEST, ) 12/12/2020 3:52 PM FINDINGS: Lungs: No pulmonary consolidation. Pleural spaces: No pleural effusion. No pneumothorax. Heart/Mediastinum: The cardiac silhouette is unchanged. No gross evidence of pneumomediastinum. Bones/joints: No gross fracture. XR/XR chest 1V portable [id number] IMPRESSION: No acute cardiopulmonary abnormality identified.
[2021-01-09 13:32] LABS: Basophils % 0.7 %; Eosinophils # 0.1 10^3/uL (0.0-0.8); Eosinophils % 1.4 %; Hemoglobin 13.1 g/dL (11.7-16.6); Lymphocytes # 1.6 10^3/uL (0.8-4.8); Lymphocytes % 28.2 %; Mean Corpuscular HGB Conc 32.8 g/dL (30.0-36.0); Mean Corpuscular Hemoglobin 30.5 pg (28.0-34.0); Mean Platelet Volume 8.6 fL (7.4-10.4); Monocytes # 0.3 10^3/uL (0.2-0.9); Monocytes % 6.1 %; Neutrophils # 3.54 10^3/uL (1.8-7.7); Neutrophils % 63.2 %; Nucleated Red Blood Cells % 0 %; Platelet Count 223 10^3/cmm (130-400); White Blood Count 5.6 10^3/uL (4.0-10.0)
[2021-01-09 13:46] LABS: Troponin(5th) Baseline 7 ng/L (0-15)
[2021-01-09 13:51] LABS: Alanine Aminotransferase 20 U/L (0-41); Alkaline Phosphatase 130 IU/L (40-130); Anion Gap 13.9 (5-19); Aspartate Amino Transferase 18 U/L (0-40); Blood Urea Nitrogen 8 mg/dL (6-20); Calcium 8.6 mg/dL (8.5-10.5); Carbon Dioxide 26 mmol/L (22-29); Chloride 105 mmol/L (98-107); Globulin 2.8 g/dL (1.3-4.6); Glomerular Filtration Rate 137.9 mL/min (90-130); Glucose 92 mg/dL (65-115); Osmolality Calculated 290 mOsm/kg (285-295); Potassium 3.9 mmol/L (3.5-5.1); Sodium 141 mmol/L (136-145); Total Bilirubin 0.5 mg/dL (0.15-1.2); Total Protein 6.8 g/dL (6.6-8.7)
--- NOTE | 2021-01-09 13:55 | W.ED.DIZZY ---
HPI - Dizziness General: Chief Complaint: Dizziness Stated Complaint: DIZZY Time Seen by Provider: 01/09/21 13:20 History of Present Illness: HPI Narrative: 60-year-old male returns emergency room with complaint of dizziness and intermittent chest pain the symptoms come on with exertion last for about 30 minutes after he stops to rest. I seen him last month ti type II second-degree heart block he was advised to be admitted refused. He left AMA he continues to be symptomatic. Returns now stating he will agree to admission evaluation. MD elicited complaint: dizziness and lightheadedness Onset (ago): week(s) Timing: gradual onset and intermittent Severity: severe Description: lightheadedness Exacerbating factors: exertion Relieving factors: remaining still and rest Associated symptoms: Reports chest pain; Denies change in hearing, chills, cough, diaphoresis, ear discharge, ear pressure, fevers/chills, headache(s), malaise, nausea, nasal congestion, palpitations, rash, short of breath, syncope, tinnitus, vomiting or weakness Associated neuro symptoms: Deny confusion, difficulty speaking, dysphagia, diplopia, extremity weakness, facial numbness, facial weakness, gait changes, numbness in extremities or visual changes Review of Systems Const: Denies: chills, malaise or diaphoresis ENMT: Denies: ear discharge, change in hearing, tinnitus or nasal congestion Card: Reports: chest pain; Denies: palpitations or syncope Resp: Denies: dyspnea, productive cough or non-productive cough GI: Denies: nausea, vomiting or dysphagia : Denies: flank pain, dysuria, urinary frequency or urinary urgency Skin/Breast: Denies: rash or pruritus Neuro: Denies: headache(s), numbness in extremities or confusion PFS ED PFSH: Social History Smoking and tobacco status: current every day smoker cigarettes Packs smoked per day: 1.5 Years cigarettes smoked: 38 Quit status (tobacco): has tried quititng Number of times tried to quit tobacco: 4 Second hand smoke exposure: Yes Physical Exam Const: COMMON NORMALS: no acute distress GENERAL APPEARANCE: cooperative and comfortable ORIENTATION/CONSCIOUSNESS: Yes awake, Yes oriented to person, Yes oriented to place and Yes oriented to time HENMT: COMMON NORMALS: normocephalic, atraumatic and hearing grossly normal bilaterally HEAD & SCALP: normocephalic and atraumatic Neck/C-Spine: COMMON NORMALS: no JVD Resp: COMMON NORMALS: normal respiratory effort, No retractions, No use of accessory muscles and clear to auscultation bilaterally AUSCULTATION: clear to auscultation bilaterally Cardio: COMMON NORMALS: no JVD, regular rate, regular rhythm and No murmurs present (Cardio) RATE: regular rate RHYTHM: regular rhythm GI: COMMON NORMALS: Soft to palpation and No hepatosplenomegaly present AUSCULTATION: Yes normoactive bowel sounds PALPATION: Yes Soft to palpation, No Tenderness to palpation present (GI), No Guarding due to palpation present (GI) and Yes No hepatosplenomegaly present Extremity: COMMON NORMALS: normal to inspection, capillary refill normal, no clubbing, cyanosis or edema, no calf tenderness and no pedal edema Neuro: SENSORIUM/ORIENTATION: Yes oriented to person, Yes oriented to place and Yes oriented to time Skin: COMMON NORMALS: no rashes or lesions noted GENERAL SKIN EXAM: no rashes or lesions noted Course Vital Signs: Vital signs: Vital Signs Temperature 98.3 F 01/09/21 11:57 Pulse Rate 72 01/09/21 12:28 Respiratory Rate 15 01/09/21 12:28 Blood Pressure 137/69 01/09/21 12:28 Pulse Oximetry 97 01/09/21 12:28 MDM - Dizziness MDM Narrative: Medical decision making narrative: Patient having chest discomfort with exertion as well as a dizziness spells of the known history of arrhythmias documented on the previous EKG in December 12. He has not have the arrhythmia on the first EKG here discussed Dr. Modi he recommends admission for further evaluation discussed Dr. Gomez he will admit the patient Dr. Modi will consult. Lab Data: Labs: Lab Results 01/09/21 01/09/21 01/09/21 Range/Units 13:20 13:20 13:20 WBC 5.6 (4.0-10.0) 10^3/ uL RBC 4.30 (4.1-5.3) 10^6/u L Hgb 13.1 (11.7-16.6) g/dL Hct 40.0 L (42.0-52.0) % MCV 93.0 (80-94) fL MCH 30.5 (28.0-34.0) pg MCHC 32.8 (30.0-36.0) g/dL RDW 13.0 (12.1-15.1) % Plt Count 223 (130-400) 10^3/c mm MPV 8.6 (7.4-10.4) fL Neut % (Auto) 63.2 % Lymph % (Auto) 28.2 % [place] % (Auto) 6.1 % Eos % (Auto) 1.4 % Baso % (Auto) 0.7 % Neut # (Auto) 3.54 (1.8-7.7) 10^3/u L Lymph # (Auto) 1.6 (0.8-4.8) 10^3/u L [place] # (Auto) 0.3 (0.2-0.9) 10^3/u L Eos # (Auto) 0.1 (0.0-0.8) 10^3/u L Baso # (Auto) 0.0 (0.0-0.1) 10^3/u L Nucleated RBC % (a uto) 0 % Nucleated RBCs # 0.0 /100WBC Sodium 141 (136-145) mmol/L Potassium 3.9 (3.5-5.1) mmol/L Chloride 105 (98-107) mmol/L Carbon Dioxide 26 (22-29) mmol/L Anion Gap 13.9 (5-19) BUN 8 (6-20) mg/dL Creatinine 0.6 L (0.7-1.2) mg/dL GFR Calculation 137.9 H (90-130) mL/min Glucose 92 (65-115) mg/dL Calculated Osmolal ity 290 (285-295) mOsm/k g Calcium 8.6 (8.5-10.5) mg/dL Total Bilirubin 0.5 (0.15-1.2) mg/dL AST 18 (0-40) U/L ALT 20 (0-41) U/L Alkaline Phosphata se 130 (40-130) IU/L Troponin T Baselin e 7 (0-15) ng/L Total Protein 6.8 (6.6-8.7) g/dL Albumin 4.0 (3.5-5.2) g/dL Globulin 2.8 (1.3-4.6) g/dL Discharge Plan Discharge Patient Disposition: Admitted As Inpatient Clinical Impression: Second degree AV block, Mobitz type II, Chest pain, Dizziness Condition: Stable Coding Level of Care Code ED Low Pressure Boiler Tender for Maria Antonia Lacy
--- NOTE | 2021-01-09 14:42 | P.HP_ITS ---
Providers/Chief Complaint Primary Care Provider: Thomas Gan Chief Complaint: DIZZY History of Present Illness David Harvey is a 60 year old male with a past medical history of depression, bipolar disorder, who presents to [facility] due to complaints of dizziness, and shortness of breath. Patient tells me that he has had 3 major trauma episodes, in which he passed out, hit his head in the last year. He never sought medical attention. He tells me that when these episodes come on, they can occur at rest and with exertion, he will have a feeling of dizziness, feel lightheaded, short of breath, he is not sure if he passes out, but has had 3 trauma episodes. No associated nausea, vomiting or diaphoresis. No asso ciated chest pain per se, but he does have a feeling of fluttering in his chest. Denies any drug use. Denies any alcohol use. Does use cannabis. Denies any alcohol use. He was adopted. No previous history of chest pain. No cardiovascular history. No history of strokes. No history of COPD. No history of arrhythmias. Review of Systems Const: Denies: fever(s), chills, fatigue or malaise Eyes: Denies: change in vision or blurry vision ENMT: Denies: nasal congestion Card: Reports: palpitations, irregular heart rhythm, lightheadedness, syncope and pre-syncope Resp: Reports: dyspnea; Denies: productive cough, non-productive cough or wheezing GI: Denies: abdominal pain, nausea, vomiting, hematemesis, diarrhea, constipation, hematochezia or melena : Denies: flank pain, difficulty urinating, dysuria or urinary frequency Musc: Denies: neck pain or back pain Skin/Breast: Denies: rash Neuro: Reports: dizziness; Denies: headache(s) or vertigo Psych: Reports: anxiety; Denies: depression Endo: Denies: polyuria or polydipsia Medications/Allergies Home Medications Medication Instructions Recorded Confirmed Last Taken Type baclofen 10 mg tablet 5 - 10 mg PO BID PRN 12/04/20 01/09/21 01/09/21 07:00 History gabapentin 400 mg capsule 400 mg PO QID 12/04/20 01/09/21 01/09/21 07:00 History omeprazole 20 mg capsule,delayed 20 mg PO DAILY@12 02/01/09/21 01/08/21 History release Abilify 5 mg PO QAM 01/09/21 01/09/21 01/09/21 07:00 History diphenhydramine HCl [Sleep Aid 50 mg PO BEDTIME 01/09/21 01/09/21 01/08/21 Hist ory (diphenhydramine)] folic acid 1 mg PO QAM 01/09/21 01/09/21 01/09/21 07:00 History hydrocodone-acetaminophen [[place]] 1 tab PO Q8H PRN MDD 3 TABS 01/09/21 01/09/21 01/09/21 07:00 History mirtazapine [Remeron] 15 mg PO BEDTIME 01/09/21 01/09/21 Unknown History Allergies Allergy/AdvReac Type Severity Reaction Status Date / Time black pepper AdvReac Mild can't Verified 01/09/21 12:52 breathe PFSH Acute 2 PFSH: Medical History (Updated 01/09/21 @ 14:46 by Franklyn Arora MD) Generalized anxiety disorder Major depressive disorder, recurrent severe without psychotic features Surgical History (Updated 01/09/21 @ 14:45 by Franklyn Arora MD) History of back surgery Family History (Updated 01/09/21 @ 14:45 by Franklyn Arora MD) Other Adopted Social History (Updated 01/09/21 @ 14:46 by Franklyn Arora MD) Smoking and tobacco status: current every day smoker cigarettes Packs smoked per day: 1.5 Years cigarettes smoked: 38 Quit status (tobacco): has tried quititng Number of times tried to quit tobacco: 4 Second hand smoke exposure: Yes Alcohol intake: never Substance/Drug Use: never Vitals/I&O/Wt Last Vital Signs Temp 98.3 F 01/09/21 11:57 Pulse 72 01/09/21 12:28 Resp 15 01/09/21 12:28 BP 137/69 01/09/21 12:28 Pulse Ox 97 01/09/21 12:28 Weight last 48 hrs Weight 73.936 kg Physical Exam Const: COMMON NORMALS: no acute distress and patient oriented x3 GENERAL APPEARANCE: cooperative and comfortable HENMT: COMMON NORMALS: normocephalic HEAD & SCALP: normocephalic Eye: COMMON NORMALS: Equal, round and reactive pupils present and EOMs intact bilaterally GENERAL EYE: appearance normal, both eyes and all related structures PUPIL: Yes Equal, round and reactive pupils present Neck/C-Spine: COMMON NORMALS: full ROM, no lymphadenopathy, no JVD and Thyroid normal THYROID: Thyroid normal Lymph: LYMPHATIC: no lymphadenopathy noted Resp: COMMON NORMALS: normal respiratory effort, No retractions, No use of accessory muscles and clear to auscultation bilaterally AUSCULTATION: clear to auscultation bilaterally Cardio: COMMON NORMALS: no JVD, regular rate, regular rhythm, S1 normal heart sound present, S2 normal heart sound present, No gallops present (Cardio), No clicks present (Cardio) and No murmurs present (Cardio) RATE: regular rate RHYTHM: regular rhythm HEART SOUNDS: S1 normal heart sound present and S2 normal heart sound present GI: COMMON NORMALS: Normal to inspection, nondistended, normoactive bowel stephany nds present, Soft to palpation, non-tender and No hepatosplenomegaly present PALPATION: Yes Soft to palpation and Yes No hepatosplenomegaly present Extremity: COMMON NORMALS: normal to inspection, full ROM and no pedal edema Neuro: COMMON NORMALS: patient oriented x3, CN's II-XII intact bilaterally, moves all extremities and no focal motor deficits Psych: COMMON NORMALS: mental status grossly normal, Normal thought process present and cooperative THOUGHT PROCESS: Normal thought process present Data : 01/09/21 13:20 01/09/21 13:20 A&P Assessment and plan (1) Generalized anxiety disorder: Status: Acute (2) Major depressive disorder, recurrent severe without psychotic features: Status: Acute (3) Bipolar disorder, current episode manic without psychotic features, moderate: Status: Acute (4) Syncope: -Neurochecks -Seizure precautions -CT head -Carotid artery ultrasound -Cardiac echo -Admit to cardiac stepdown unit -Serial EKGs, serial troponins -BMP, TSH -Urine drug screen, alcohol screen -A1c, lipid panel -Cardiology on consult Status: Acute Attestations Medical Necessity Statement*: Patient requires hospitalization, outpatient with observation, for syncope Coding Level of Care Code Acute Pediatric Nurse for [facility] Fwd Diagnoses Generalized anxiety disorder F41.1 Major depressive disorder, recurrent severe without psychotic features F33.2 Bipolar disorder, current episode manic without psychotic features, moderate F31.12 Syncope R55
--- NOTE | 2021-01-09 14:45 | ECG_ITS ---
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 Measurements Intervals [place] Rate: 83 P: 36 [place]: 155 QRS: 6 QRSD: 98 T: 54 QT: 362 QTc: 426 Interpretive Statements SINUS RHYTHM POSSIBLE RIGHT VENTRICULAR CONDUCTION DELAY [RSR (QR) IN V1/V2] Compared to ECG 01/09/2021 12:07:24 No significant changes Electronically Signed On 01-09-2021 17:03:45 CDT by Jose Watson M.D. [id number]
--- NOTE | 2021-01-09 15:30 | CTR_ITS ---
PROCEDURE INFORMATION: Exam: CT Head Without Contrast Exam date and time: 01/09/2021 4:45 PM Age: 60 years old Clinical indication: Patient HX: C/O dizziness TECHNIQUE: Imaging protocol: Computed tomography of the head without contrast. Radiation optimization: All CT scans at this facility use at least one of these dose optimization techniques: automated exposure control; mA and/or kV adjustment per patient size (includes targeted exams where dose is matched to clinical indication); or iterative reconstruction. COMPARISON: CT head wo con* [id number] 11/26/2020 9:46 PM RADIATION DOSE METRICS: Total DLP (mGy-cm): 862.96 FINDINGS: Brain: Normal. No hemorrhage. Unremarkable white matter. No mass effect. Cerebral ventricles: No ventriculomegaly. Bones/joints: Unremarkable. No acute fracture. Paranasal sinuses: Visualized sinuses are unremarkable. No fluid levels. Mastoid air cells: Visualized mastoid air cells are well aerated. Soft tissues: Unremarkable. CT/CT head wo con* [id number] IMPRESSION: No acute intracranial abnormality. Radiation Dose CTDIVOL = (mGy): DLP = 862.96 (mGy-cm)
--- NOTE | 2021-01-09 15:30 | USR_ITS ---
PROCEDURE INFORMATION: Exam: US Duplex Bilateral Extracranial Arteries Exam date and time: 01/09/2021 4:13 PM Age: 60 years old Clinical indication: Dizziness TECHNIQUE: Imaging protocol: Real-time Duplex ultrasound scan of the bilateral carotid and vertebral arteries combining radford scale, color Doppler and spectral waveform analysis. Bilateral exam. COMPARISON: CT head wo con* [id number] 11/26/2020 9:46 PM FINDINGS: Right common carotid artery: Unremarkable. No occlusion or stenosis. Waveforms are normal. Right internal carotid artery: Mild plaque. No occlusion or stenosis. Waveforms are normal. Right ICA/CCA ratio: Within normal limits. Right external carotid artery: No stenosis in the origin. Right vertebral artery: Unremarkable. Antegrade flow. Left common carotid artery: Unremarkable. No occlusion or stenosis. Waveforms are normal. Left internal carotid artery: Mild plaque. No occlusion or stenosis. Waveforms are normal. Left ICA/CCA ratio: Within normal limits. Left external carotid artery: No stenosis in the origin. Left vertebral artery: Unremarkable. Antegrade flow. US/CV carotid duplex BI* [id number] IMPRESSION: No carotid arterial stenosis. REFERENCES: SRU CRITERIA. The degree of internal carotid artery stenosis is based on criteria defined by the Society of Radiologists in Ultrasound (SRU). Normal is no stenosis. Mild is less than 50% stenosis. Moderate is 50-69% stenosis. Severe is greater than 69% stenosis to near occlusion. Near occlusion is a markedly narrowed lumen. Total occlusion is no detectable patent lumen.
[2021-01-09] MEDS: gabapentin 400 mg Capsule PO ×2 (16:10→21:04)
[2021-01-09] MEDS: enoxaparin 40 mg/0.4 mL Syringe SUBCUT (16:10)
[2021-01-09] MEDS: D5-NS 0.45% + KCL 20 mEq 20 MEQ/1,000 ML BAG 100 MEQ IV (16:11)
[2021-01-09 16:28] LABS: Troponin 5 2HR 7.42 ng/L (0-15); Troponin 5 2HR Delta 0.42 ABS# (0-10)
[2021-01-09] MEDS: nicotine 21 mg Patch 1 PATCH TRANSDERMA (16:31)
[2021-01-09 16:36] LABS: Thyroid Stimulating Hormone 1.28 uIU/mL (0.27-4.20)
[2021-01-09 16:48] LABS: Alcohol Level < 10 mg/dL (0-10)
--- NOTE | 2021-01-09 17:50 | PC.NURSE ---
Patient transferred to room 259-1 in a wheelchair. Report given to Ines.
--- NOTE | 2021-01-09 18:45 | ECG_ITS ---
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 Measurements Intervals [place] Rate: 75 P: 28 HI: 132 QRS: 28 QRSD: 90 T: 49 QT: 376 QTc: 421 Interpretive Statements SINUS RHYTHM POSSIBLE RIGHT VENTRICULAR CONDUCTION DELAY [RSR (QR) IN V1/V2] Compared to ECG 12/12/2020 15:55:45 No significant changes Electronically Signed On 01-09-2021 13:13:49 CDT by Jose Watson M.D. [id number]
[2021-01-09 20:37] LABS: Troponin 5 6HR 8.68 ng/L (0-15); Troponin 5 6HR Delta 1.68 ng/L (0-12)
[2021-01-09] MEDS: mirtazapine 15 mg Tablet PO (21:04)
--- NOTE | 2021-01-09 22:11 | PM.CONSULT ---
Providers/Reason For Consult Consulting Physican/Specialty*: Jose Watson MD/Cardiology Reason for Consult*: Dizziness/presyncope Requesting Physcian: Dr Fitzpatrick Attending Physician: Franklyn Arora MD Primary Care Provider: Thomas Gan History of Present Illness History of Present Illness David Harvey is a 60 year old male with past medical history of depression, bipolar disorder, who presents to [facility] due to complaints of dizziness, and shortness of breath. Patient had a presyncopal episode today. He says that over the last year he had 1 syncopal episode and a few pre syncopal episodes. Patient had come to ER last month and there was concern for mobitz type 2 AV block on tele per ER notes but he did not stay for further evaluation. No associated nausea, vomiting or diaphoresis. No associated chest pain but feels fluttering sensation in the chest. Denies any drug use. Today is in normal sinus rhythm Review of Systems Const: Denies: fever(s), chills, fatigue or malaise Eyes: Denies: change in vision or blurry vision ENMT: Denies: nasal congestion Card: Reports: palpitations, irregular heart rhythm, lightheadedness, syncope and pre-syncope Resp: Reports: dyspnea; Denies: productive cough, non-productive cough or wheezing GI: Denies: abdominal pain, nausea, vomiting, hematemesis, diarrhea, constipation, hematochezia or melena : Denies: flank pain, difficulty urinating, dysuria or urinary frequency Musc: Denies: neck pain or back pain Skin/Breast: Denies: rash Neuro: Reports: dizziness; Denies: headache(s) or vertigo Psych: Reports: anxiety; Denies: depression Endo: Denies: polyuria or polydipsia Meds/Allergies Home Medications and Allergies Home Medications Medication Instructions Recorded Confirmed Last Taken Type baclofen 10 mg tablet 5 - 10 mg PO BID PRN 12/04/20 01/09/21 01/09/21 07:00 History gabapentin 400 mg capsule 400 mg PO QID 12/04/20 01/09/21 01/09/21 07:00 History omeprazole 20 mg capsule,delayed 20 mg PO DAILY@12 12/04/20 01/09/21 01/08/21 History release Abilify 5 mg PO QAM 01/09/21 01/09/21 01/09/21 07:00 History diphenhydramine HCl [Sleep Aid 50 mg PO BEDTIME 01/09/21 01/09/21 01/08/21 History (diphenhydramine)] folic acid 1 mg PO QAM 01/09/21 01/09/21 01/09/21 07:00 History hydrocodone-acetaminophen [[place]] 1 tab PO Q8H PRN MDD 3 TABS 01/09/21 01/09/21 01/09/21 07:00 History mirtazapine [Remeron] 15 mg PO BEDTIME 01/09/21 01/09/21 Unknown History Allergies Allergy/AdvReac Type Severity Reaction Status Date / Time black pepper AdvReac Mild can't Verified 01/09/21 12:52 breathe Current Medications Current Medications Generic Name Dose Route Start Last Admin Trade Name Freq PRN Reason Stop Dose Admin Gabapentin 400 mg 01/09/21 21:00 01/09/21 21:04 Gabapentin 400 Mg Capsule PO 400 mg QID RANDELL Administration Mirtazapine 15 mg 01/09/21 21:00 01/09/21 21:04 Mirtazapine 15 Mg Tablet PO 15 mg BEDTIME RANDELL Administration PFSH Acute PFSH: Medical History Generalized anxiety disorder Major depressive disorder, recurrent severe without psychotic features Surgical History History of back surgery Family History Other Adopted Social History Smoking and tobacco status: current every day smoker cigarettes Packs smoked per day: 1.5 Years cigarettes smoked: 38 Quit status (tobacco): has tried quititng Number of times tried to quit tobacco: 4 Second hand smoke exposure: Yes Alcohol intake: never Vitals/I&O/Wt Last Vital Signs Temp 98.3 F 01/09/21 19:28 Pulse 73 01/09/21 19:28 Resp 17 01/09/21 19:28 BP 93/47 01/09/21 19:28 Pulse Ox 93 01/09/21 19:28 01/09/21 01/09/21 01/09/21 06:59 14:59 22:59 Intake Total 3620 / 3620 Balance 3620 / 3620 Weight last 48 hrs Weight 163 lb Physical Exam Const: COMMON NORMALS: no acute distress and patient oriented x3 HENMT: COMMON NORMALS: normocephalic HEAD & SCALP: normocephalic Neck/C-Spine: COMMON NORMALS: no JVD Resp: COMMON NORMALS: normal respiratory effort, No retractions, No use of accessory muscles and clear to auscultation bilaterally AUSCULTATION: clear to auscultation bilaterally Cardio: COMMON NORMALS: no JVD, regular rate, regular rhythm, S1 normal heart sound present and S2 normal heart sound present RATE: regular rate RHYTHM: regular rhythm HEART SOUNDS: S1 normal heart sound present and S2 normal heart sound present GI: COMMON NORMALS: Normal to inspection, nondistended, normoactive bowel sounds present, Soft to palpation, non-tender, No hepatosplenomegaly present, no masses and no bruits PALPATION: Yes Soft to palpation and Yes No hepatosplenomegaly present Extremity: COMMON NORMALS: capillary refill normal, no clubbing, cyanosis or edema, no calf tenderness and no pedal edema Neuro: COMMON NORMALS: patient oriented x3 Psych: COMMON NORMALS: mental status grossly normal A&P Assessment and plan (1) Dizziness: Status: Acute (2) Pre-syncope: Status: Acute Tele monitoring Order echo Can order nuclear stress test as there is documentation of mobitz type 2 AV block in past although right now is in normal sinus rhythm Avoid rate lowering agents Thank you for involving us with care of this patient. We will continue to follow. Please call with questions Coding Level of Care Code Acute Vacuum Repairer for [facility] Diagnoses Dizziness R42 Pre-syncope R55
[2021-01-10] VITALS (10 sets, daily range): BP systolic 121–159; BP diastolic 61–88; PULSE 63–92; RESP 16–18; TEMP 36.6–37.1; O2SAT 95–98
[2021-01-10] MEDS: D5-NS 0.45% + KCL 20 mEq 20 MEQ/1,000 ML BAG 100 MEQ IV (03:09)
--- NOTE | 2021-01-10 05:49 | PC.NURSE ---
pt agitated and upset/crying, pulling at restraints when nurse went in for q2 ROM. Will try again shortly barring in mind safety for nurse and patient.
--- NOTE | 2021-01-10 06:00 | USCV_ITS ---
David Harvey Age: 60 Gender: M : 1960 Exam Date: 01/10/2021 07:04 Ordering Phys: Franklyn Arora MD Technologist: Sidra Edwards [place] [facility] [place]: [place]izz[place] BP: 136 / 61 HR: 68 Rhythm: Sinus Technical Quality: Adequate MEASUREMENTS (Male / Female) Normal Values 2D ECHO LV Diastolic Diameter PLAX 3.9 cm 4.2 - 5.9 / 3.9 - 5.3 cm LV Systolic Diameter PLAX 3.0 cm LV Chamber Size 4.3 cm IVS Diastolic Thickness 1.3 cm 0.6 - 1.0 / 0.6 - 0.9 cm IVS Systolic Thickness 1.8 cm LVPW Diastolic Thickness 1.3 cm 0.6 - 1.0 / 0.6 - 0.9 cm LVPW Systolic Thickness 1.2 cm RV Chamber Size 2.6 cm LVOT Diameter 2.0 cm LV Ejection Fraction 2D Teich 46.2 % LV Ejection Fraction MOD 2C 55.2 % LV Ejection Fraction 2C AL 55.6 % LA Diameter 3.7 cm LA Width 3.5 cm LA Height 5.0 cm RA Width 3.6 cm RA Height 5.6 cm Aorta at Sinotubular Diameter 2.6 cm M-MODE LV Diastolic Diameter MM 5.4 cm 4.2 - 5.9 / 3.9 - 5.3 cm LV Systolic Diameter MM 3.4 cm LV Ejection Fraction MM Teich 67.8 % IVS Diastolic Thickness MM 1.1 cm 0.6 - 1.0 / 0.6 - 0.9 cm IVS Systolic Thickness MM 1.5 cm LVPW Diastolic Thickness MM 1.3 cm 0.6 - 1.0 / 0.6 - 0.9 cm LVPW Systolic Thickness MM 1.6 cm RV Diastolic Diameter MM 1.6 cm Aortic Annulus Diameter 3.4 cm LA Ao Ratio MM 1.2 MV E Point Septal Separation 0.7 cm DOPPLER AV Peak Velocity 157.0 cm/s LVOT Peak Velocity 129.0 cm/s AV Area Cont Eq vti 2.6 cm squared AV Area Cont Eq pk 2.5 cm squared MV Area PHT 3.5 cm squared Mitral E to A Ratio 1.3 MV E' Velocity 57.0 cm/s Mitral E to MV E' Ratio 9.7 Mitral E to LV E' Lateral Ratio 8.6 Mitral E to LV E' Septal Ratio 11.2 TR Peak Velocity 218.7 cm/s TR Peak Gradient 19.1 mmHg TV Peak E Velocity 53.0 cm/s Right Atrial Pressure 8.0 mmHg Pulmonary Artery Systolic Pressu 27.1 mmHg PV Peak Velocity 66.0 cm/s RV Acceleration Time 0.1 s RV Ejection Time 0.3 s RV AcT/ET 0.3 FINDINGS Left Ventricle Normal left ventricular size. LV systolic function is normal with EF of 55-60%. No regional wall motion abnormalities. Normal diastolic filling pattern. Right Ventricle The right ventricle is normal in size and function. Right Atrium The right atrium is normal in size. Left Atrium The left atrium is normal in size. Mitral Valve Structurally normal mitral valve without significant stenosis or prolapse. There is mild mitral regurgitation. Aortic Valve Structurally normal aortic valve without significant sclerosis or stenosis. There is no aortic regurgitation. Tricuspid Valve Structurally normal tricuspid valve without significant stenosis . Mild tricuspid regurgitation. RVSP is 25-30mmHg Pulmonic Valve Structurally normal pulmonic valve without significant stenosis. There is no pulmonic regurgitation. Pericardium Normal pericardium without effusion. Aorta Normal ascending aorta dimension. CONCLUSIONS LV systolic function is normal with EF of 55-60% Diastolic function is normal Mild mitral regurgitation and mild tricuspid regurgitation. No comparison studies are available Jose Watson MD (Electronically Signed) Final Date: 10 January 2021 16:45 S
[2021-01-10] MEDS: ARIPiprazole 10 mg Tablet 5 MG PO (06:02)
[2021-01-10] MEDS: folic acid 1 mg Tablet PO (06:03)
[2021-01-10] MEDS: nicotine 21 mg Patch 1 PATCH TRANSDERMA (08:06)
[2021-01-10] MEDS: gabapentin 400 mg Capsule PO ×4 (08:07→21:02)
[2021-01-10] MEDS: HYDROcodone-acetaminophen 10-325 mg Tablet 1 TAB PO ×2 (08:39→16:59)
--- NOTE | 2021-01-10 09:30 | P.PN_ITS ---
Subjective Subjective: Interval history: Patient is doing well. No complaints of chest pain, shortness of breath or palpitatons. TELE doesnt show any evidence of heart block Vitals/I&O/Wt Last Vital Signs Temp 98.5 F 01/10/21 07:28 Pulse 63 01/10/21 07:28 Resp 18 01/10/21 07:28 BP 121/74 01/10/21 07:28 Pulse Ox 95 01/10/21 07:28 01/09/21 01/10/21 01/10/21 22:59 06:59 14:59 Intake Total 3620 / 3620 120 / 3740 120 / 120 Balance 3620 / 3620 120 / 3740 120 / 120 Weight last 48 hrs Weight 163 lb Physical Exam Const: COMMON NORMALS: no acute distress and patient oriented x3 HENMT: COMMON NORMALS: normocephalic HEAD & SCALP: normocephalic Neck/C-Spine: COMMON NORMALS: no JVD Resp: COMMON NORMALS: normal respiratory effort, No retractions, No use of accessory muscles and clear to auscultation bilaterally AUSCULTATION: clear to auscultation bilaterally Cardio: COMMON NORMALS: no JVD, regular rate, regular rhythm, S1 normal heart sound present and S2 normal heart sound present RATE: regular rate RHYTHM: regular rhythm HEART SOUNDS: S1 normal heart sound present and S2 normal heart sound present GI: COMMON NORMALS: Normal to inspection, nondistended, normoactive bowel sounds present, Soft to palpation, non-tender, No hepatosplenomegaly present, no masses and no bruits PALPATION: Yes Soft to palpation and Yes No hepatosplenomegaly present Extremity: COMMON NORMALS: capillary refill normal, no clubbing, cyanosis or edema, no calf tenderness and no pedal edema Neuro: COMMON NORMALS: patient oriented x3 Psych: COMMON NORMALS: mental status grossly normal Data : 01/10/21 09:50 01/10/21 09:50 A&P Assessment and plan (1) Dizziness: Status: Acute (2) Pre-syncope: Status: Acute Tele monitoring has not revealed any heart block ECHO shows normal LV function without significant abnormalities Nuclear stress test ordered however patient says that he has to go home tomorrow morning. Will discuss again in the morning. If he does not agree to stay in the hospital, can peform stress test as outpatient and set up out patient 28 day event monitor Avoid rate lowering agents Thank you for involving us with care of this patient. We will continue to follow. Please call with questions Attestations Medical Necessity Statement*: Care expected to cross 2 midnights. Coding Level of Care Code Acute Pulmonologist for [facility] Diagnoses Dizziness R42 Pre-syncope R55
[2021-01-10 10:00] LABS: Add Urine Microscopic? NO
[2021-01-10 10:01] LABS: Bilirubin Urine Neg (Negative); Blood Urine Neg (Negative); Glucose Urine UA Norm (Normal); Ketones Urine Negative (Negative); Leukocyte Esterase Urine Negative (Negative); Nitrate Urine Negative (Negative); Protein Urine Neg (Negative); Specific Gravity, Urine 1.015 (1.005-1.030); Urine Appearance Clear (CLEAR); Urine Color Yellow (Yellow); Urobilinogen Urine 4 mg/dL (Negative); pH Urine 7 (5-7)
[2021-01-10 10:07] LABS: Amphetamines Screen Urine Negative (Negative); Barbiturates Screen Urine Negative (Negative); Benzodiazepines Screen Urine Negative (Negative); Cocaine Screen Urine Negative (Negative); Opiate Screen Urine Positive (Negative); PCP Screen Urine Negative (Negative); THC Screen Urine Positive (Negative)
[2021-01-10 10:15] LABS: Basophils % 0.8 %; Eosinophils # 0.1 10^3/uL (0.0-0.8); Eosinophils % 1.8 %; Hematocrit 40.9 % (42.0-52.0); Hemoglobin 13.5 g/dL (11.7-16.6); Lymphocytes # 1.8 10^3/uL (0.8-4.8); Lymphocytes % 36.1 %; Mean Corpuscular Hemoglobin 30.1 pg (28.0-34.0); Mean Corpuscular Volume 91.1 fL (80-94); Mean Platelet Volume 8.6 fL (7.4-10.4); Monocytes # 0.4 10^3/uL (0.2-0.9); Monocytes % 8.6 %; Neutrophils # 2.61 10^3/uL (1.8-7.7); Neutrophils % 52.5 %; Nucleated Red Blood Cells % 0 %; Platelet Count 241 10^3/cmm (130-400); Red Blood Count 4.49 10^6/uL (4.1-5.3); Red Cell Distribution Width 12.8 % (12.1-15.1)
[2021-01-10 10:33] LABS: Estmated Average Glucose 94; Hemoglobin A1C 4.9 % (4.0-6.0)
[2021-01-10 10:48] LABS: Alanine Aminotransferase 18 U/L (0-41); Albumin Level 4.1 g/dL (3.5-5.2); Alkaline Phosphatase 124 IU/L (40-130); Anion Gap 12.3 (5-19); Aspartate Amino Transferase 18 U/L (0-40); Blood Urea Nitrogen 8 mg/dL (6-20); Carbon Dioxide 25 mmol/L (22-29); Chloride 105 mmol/L (98-107); Chol HDL Ratio 3.93 mg/dL (1.0-5.00); Cholesterol 173 mg/dL (0-200); Globulin 3.3 g/dL (1.3-4.6); Glomerular Filtration Rate 170.2 mL/min (90-130); Glucose 104 mg/dL (65-115); HDL Cholesterol 44 mg/dL (60-100); LDL Cholesterol Calculated 113 mg/dL (50-129); LDL HDL Ratio 2.57 RATIO (0.00-3.22); Magnesium 1.7 mg/dL (1.7-2.3); NT Pro B Type Natriuretic Pept 72 pg/mL (0-125); Osmolality Calculated 285 mOsm/kg (285-295); Phosphorus 3.3 mg/dL (2.5-4.5); Potassium 4.3 mmol/L (3.5-5.1); Sodium 138 mmol/L (136-145); Total Bilirubin 0.6 mg/dL (0.15-1.2); Total Protein 7.4 g/dL (6.6-8.7); Triglycerides 81 mg/dL (0-150)
[2021-01-10] MEDS: baclofen 10 mg Tablet 5 MG PO (11:54)
[2021-01-10] MEDS: pantoprazole DR 40 mg Tablet PO (11:54)
--- NOTE | 2021-01-10 11:57 | PM.PN ---
Subjective Subjective: Interval history: Patient was examined this morning, he is ambulating without any significant symptomatology, no chest pain no events overnight, no lightheadedness overnight, no shortness of breath overnight, no telemetry events overnight Vitals/I&O/Wt Last Vital Signs Temp 98.1 F 01/10/21 11:07 Pulse 74 01/10/21 11:07 Resp 18 01/10/21 11:07 BP 132/71 01/10/21 11:07 Pulse Ox 98 01/10/21 11:07 01/09/21 01/10/21 01/10/21 22:59 06:59 14:59 Intake Total 3620 / 3620 120 / 3740 120 / 120 Balance 3620 / 3620 120 / 3740 120 / 120 Weight last 48 hrs Weight 73.936 kg Physical Exam Const: COMMON NORMALS: no acute distress and patient oriented x3 HENMT: COMMON NORMALS: normocephalic HEAD & SCALP: normocephalic Neck/C-Spine: COMMON NORMALS: no JVD Resp: COMMON NORMALS: normal respiratory effort, No retractions, No use of accessory muscles and clear to auscultation bilaterally AUSCULTATION: clear to auscultation bilaterally Cardio: COMMON NORMALS: no JVD, regular rate, regular rhythm, S1 normal heart sound present and S2 normal heart sound present RATE: regular rate RHYTHM: regular rhythm HEART SOUNDS: S1 normal heart sound present and S2 normal heart sound present GI: COMMON NORMALS: Normal to inspection, nondistended, normoactive bowel sounds present, Soft to palpation, non-tender, No hepatosplenomegaly present, no masses and no bruits PALPATION: Yes Soft to palpation and Yes No hepatosplenomegaly present Extremity: COMMON NORMALS: capillary refill normal, no clubbing, cyanosis or edema, no calf tenderness and no pedal edema Neuro: COMMON NORMALS: patient oriented x3 Psych: COMMON NORMALS: mental status grossly normal Data : 01/10/21 09:50 01/10/21 09:50 A&P Assessment and plan (1) Generalized anxiety disorder: Status: Acute (2) Major depressive disorder, recurrent severe without psychotic features: Status: Acute (3) Bipolar disorder, current episode manic without psychotic features, moderate: Status: Acute (4) Syncope: -Neurochecks -Seizure precautions -CT head, unremarkable -Carotid artery ultrasound, no flow-limiting disease -Cardiac echo, pending -Serial EKGs, serial troponins within normal limits -BMP, TSH within normal limits -Urine drug screen positive for opiates and marijuana, alcohol screen negative -A1c, lipid panel within normal limits -Given patient's previous EKG back in November showing second-degree AV block, and patient's true syncopal episodes, will order a cardiac stress test, n.p.o. midnight, and likely will require event monitor on discharge -Cardiology on consult Status: Acute Attestations Medical Necessity Statement*: Patient course hospitalization inpatient, greater than 2 midnights, for syncope, requiring cardiac stress testing Coding Level of Care Code Acute Finisher Map And Chart for g Fwd Diagnoses Generalized anxiety disorder F41.1 Major depressive disorder, recurrent severe without psychotic features F33.2 Bipolar disorder, current episode manic without psychotic features, moderate F31.12 Syncope R55
--- NOTE | 2021-01-10 13:51 | PC.CHAP ---
Pastoral Care Encounter/Spiritual Assessment Type of Contact [] Declined supervisor customer records division visit [] Patient/Family/Request visit [] Outpatient visit [] Follow-up visit [] Physician referral [] Code/Alert [XX] Routine visit [] Staff referral [] Actively dying [] Patient sleeping [] Family support [] [] Out of room [] Palliative care [] [] Receiving care in room [] Pre-surgical visit [] Trauma [] Long length of stay [] ICU visit [] Other: Relational/Emotional Strength [] Patient feels connected with others/family/visitors/staff [] Distress [] Loneliness/isolation [] Abandonment Spirituality of Patient [X] Person of Margarita [] Attends Temple of their Margarita [X] Believes in Prayer [X] Reads Bible or Scientology materials [] There are Spiritual issues to be addressed Archivist [employer] Interventions [X] Prayer [X] Active listening [X] Non-anxious presence [] Spiritual/emotional support [] Crisis/trauma care [] Spiritual counseling [] Bereavement support [] Provided bereavement packet [] Provided Bible/devotional materials [] Provided toy/stuffed animal, coloring book to patient or family member [] Provided Communion [] Anointing/[place] [] Salvation [X] Completed spiritual assessment [X] Other: advocacy (see below) Impact on Illness or Injury [] Angry [] Fearful [] Anxious [] Often cries [] Exhaustion [] Unable to work [] Unable to attend yazdanism [] Unable to walk/stand [] Unable to read [] Unable to drive [] Unable to eat/drink [] Unable to sleep [] Unable to be with family [] Patient intubated [] Other: Summary: Pt is homeless altho he reports that he stays at [facility]. He reports having an appt tomorrow about an apt at the [facility]. He thinks that he will be discharged tomorrow, but he is worried that he will miss the appt. I contacted social insurance administrator at [facility], and the person with whom I spoke was perturbed that pt did not mention the appt to her when she met with him. In terms of spiritual support, pt requested prayer, and accepted a Daily Bread. Time spent with patient: 15 mins
[2021-01-10] MEDS: enoxaparin 40 mg/0.4 mL Syringe SUBCUT (16:55)
[2021-01-10] MEDS: mirtazapine 15 mg Tablet PO (21:02)
[2021-01-11] VITALS: BP 101/62; PULSE 75; RESP 16; TEMP 37.1; O2SAT 97
[2021-01-11] MEDS: HYDROcodone-acetaminophen 10-325 mg Tablet 1 TAB PO (02:31)
[2021-01-11 04:00] VITALS: BP 133/84; PULSE 70; RESP 17; TEMP 36.5; O2SAT 98
[2021-01-11 05:02] LABS: Basophils % 0.9 %; Eosinophils # 0.1 10^3/uL (0.0-0.8); Eosinophils % 2.7 %; Hematocrit 39.3 % (42.0-52.0); Hemoglobin 12.8 g/dL (11.7-16.6); Lymphocytes # 1.7 10^3/uL (0.8-4.8); Lymphocytes % 38.1 %; Mean Corpuscular HGB Conc 32.6 g/dL (30.0-36.0); Mean Corpuscular Hemoglobin 30.4 pg (28.0-34.0); Mean Corpuscular Volume 93.3 fL (80-94); Mean Platelet Volume 8.8 fL (7.4-10.4); Monocytes # 0.4 10^3/uL (0.2-0.9); Monocytes % 8.5 %; Neutrophils # 2.23 10^3/uL (1.8-7.7); Neutrophils % 49.6 %; Nucleated Red Blood Cells % 0 %; Platelet Count 217 10^3/cmm (130-400); Red Blood Count 4.21 10^6/uL (4.1-5.3); Red Cell Distribution Width 12.8 % (12.1-15.1); White Blood Count 4.5 10^3/uL (4.0-10.0)
[2021-01-11 05:40] LABS: Alanine Aminotransferase 18 U/L (0-41); Albumin Level 3.7 g/dL (3.5-5.2); Alkaline Phosphatase 116 IU/L (40-130); Aspartate Amino Transferase 16 U/L (0-40); Blood Urea Nitrogen 9 mg/dL (6-20); Calcium 8.7 mg/dL (8.5-10.5); Carbon Dioxide 26 mmol/L (22-29); Chloride 106 mmol/L (98-107); Globulin 3.2 g/dL (1.3-4.6); Glomerular Filtration Rate 137.9 mL/min (90-130); Glucose 99 mg/dL (65-115); Magnesium 1.7 mg/dL (1.7-2.3); Osmolality Calculated 291 mOsm/kg (285-295); Phosphorus 4.6 mg/dL (2.5-4.5); Sodium 141 mmol/L (136-145); Total Bilirubin 0.4 mg/dL (0.15-1.2); Total Protein 6.9 g/dL (6.6-8.7)
[2021-01-11 06:00] VITALS: PULSE 78
--- NOTE | 2021-01-11 06:05 | PC.NURSE ---
TEST REFUSAL: THE PATIENT IS REFUSING TO STAY FOR THE NUCLEAR STRESS, BECAUSE HE HAS TO GET TO AN APPOINTMENT FOR HIS LIVING SITUATION. HE HAS BEEN NPO SINCE MIDNIGHT, BUT REFUSES TO ANSWER QUESTION PERTINENT TO TEST.
[2021-01-11] MEDS: ARIPiprazole 10 mg Tablet 5 MG PO (06:33)
[2021-01-11] MEDS: folic acid 1 mg Tablet PO (06:34)
[2021-01-11 07:49] VITALS: BP 132/76; PULSE 73; RESP 18; TEMP 37.1; O2SAT 98
[2021-01-11 08:27] VITALS: BP 132/76; PULSE 73; RESP 18; TEMP 37.1; O2SAT 98
--- NOTE | 2021-01-11 08:28 | PC.NURSE ---
Patient left against medical advice. Dr. Honeycutt notified, erin signed. Went over risk of leaving hospital AMA. Patient states he has an appointment for housing that he can not miss.
--- NOTE | 2021-01-11 08:33 | PC.NURSE ---
Placed call to patient to notify him of referral to cardiology. Gave instructions, on how to reach heart care. Patient states verbal understanding.
== END 2021-01-11 08:30 | disposition left against medical advice (07) ==
LOC: ER 14:06 → CSU 18:55 → MEDSURG 18:55
PROVIDERS: Physician Assistant; Admitting Provider Family Medicine; Emergency Provider Family Medicine; PCP Family Medicine; Visit Provider Internal Medicine
DX: F41.1 Generalized anxiety disorder (principal); F31.12 Bipolar disorder, current episode manic without psychotic features, moderate; R55 Syncope and collapse; R42 Dizziness and giddiness; I44.1 Atrioventricular block, second degree; Z79.891 Long term (current) use of opiate analgesic; F17.210 Nicotine dependence, cigarettes, uncomplicated
CPT/HCPCS: 36415; 70450; 71045; 80053; 80061; 80306; 80307; 81003; 83036; 83735; 83880; 84100; 84443; 84484; 85025; 93005; 93306; 93880; 94664; 96365; 96366; 96372; 99285; G0378; J1650

== ENCOUNTER 2021-01-11 14:19 | Observation (INO) | payer MEDICAID, SELFPAY ==
[2021-01-11] VITALS (9 sets, daily range): BP systolic 121–159; BP diastolic 64–89; PULSE 70–92; RESP 16–20; TEMP 36.5–37.2; O2SAT 95–99; BMI 25.0
--- NOTE | 2021-01-11 14:22 | XRR_ITS ---
PROCEDURE INFORMATION: Exam: XR Chest Exam date and time: 01/11/2021 2:23 PM Age: 60 years old Clinical indication: Cough and dyspnea; Additional info: Dyspnea/cough TECHNIQUE: Imaging protocol: XR of the chest Views: 1 view. COMPARISON: CR (CHEST, ) 01/09/2021 12:53 PM FINDINGS: Lungs: Unremarkable. No consolidation. Pleural spaces: Unremarkable. No pleural effusion. No pneumothorax. Heart/Mediastinum: Unremarkable. No cardiomegaly. Bones/joints: Unremarkable. stable examination since prior study XR/XR chest 1V portable [id number] IMPRESSION: No acute findings.
--- NOTE | 2021-01-11 14:23 | ECG_ITS ---
[facility] Test Date: 2021-01-11 Pat Name: David Harvey Department: Room: 252 Gender: Male Visual Presentation Manager: adri : 1960 Requested By: Reinaldo Bustos Order Number: [id number] Ollie MD: Jose Watson M.D. Measurements Intervals [place] Rate: 80 P: 41 ND: 151 QRS: 38 QRSD: 101 T: 61 QT: 378 QTc: 438 Interpretive Statements SINUS RHYTHM Compared to ECG 01/09/2021 18:31:12 No significant changes Electronically Signed On 01-11-2021 19:13:34 CDT by Jose Watson M.D. [id number]
--- NOTE | 2021-01-11 15:02 | W.ED.DIZZY ---
HPI - Dizziness General: Chief Complaint: Dizziness Stated Complaint: VERTIGO/ DEHYDRATION Time Seen by Provider: 01/11/21 14:20 History of Present Illness: HPI Narrative: 60-year-old male who presents emergency room with lightheadedness and syncopal episodes. This been going on for over a month now seen back in late November he had a second-degree type II block we had recommended that he be hospitalized he refused at that time he left the ER AMA he returned 2 days ago and we admitted him he left AMA again this morning. After leaving here he began having lightheaded dizzy episodes and syncopal episodes who called the ambulance again returned he now states he is willing to stay. MD elicited complaint: dizziness, lightheadedness and near syncope Pertinent past history: syncope Onset (ago): week(s) Timing: sudden onset Severity: similar to previous episodes Description: lightheadedness, off-balance and difficulty walking Context: other (Known history of arrhythmia) History of similar symptoms: Yes Exacerbating factors: exertion Relieving factors: remaining still, rest and lying down Associated symptoms: Reports malaise, nausea, palpitations and weakness; Denies abnormal vaginal bleeding, change in hearing, chest pain, chills, cough, diaphoresis, ear discharge, ear pressure, fevers/chills, headache(s), nasal congestion, rash, short of breath, syncope, tinnitus or vomiting Associated neuro symptoms: Deny confusion, difficulty speaking, dysphagia, diplopia, extremity weakness, facial numbness, facial weakness, gait changes, numbness in extremities or visual changes Review of Systems Const: Reports: malaise; Denies: chills or diaphoresis ENMT: Denies: ear discharge, change in hearing, tinnitus or nasal congestion Card: Reports: palpitations; Denies: chest pain or syncope Resp: Denies: dyspnea, productive cough or non-productive cough GI: Reports: nausea; Denies: vomiting or dysphagia : Denies: flank pain, dysuria, urinary frequency or urinary urgency Skin/Breast: Denies: rash or pruritus Neuro: Denies: headache(s), numbness in extremities or confusion PFS ED PFSH: Medical History Generalized anxiety disorder Major depressive disorder, recurrent severe without psychotic features Surgical History History of back surgery Family History Other Adopted Social History Smoking and tobacco status: current every day smoker cigarettes Packs smoked per day: 1.5 Years cigarettes smoked: 38 Quit status (tobacco): has tried quititng Number of times tried to quit tobacco: 4 Second hand smoke exposure: Yes Alcohol intake: never Physical Exam Const: COMMON NORMALS: no acute distress GENERAL APPEARANCE: cooperative and comfortable ORIENTATION/CONSCIOUSNESS: Yes awake, Yes oriented to person, Yes oriented to place and Yes oriented to time HENMT: COMMON NORMALS: normocephalic, atraumatic and hearing grossly normal bilaterally HEAD & SCALP: normocephalic and atraumatic Neck/C-Spine: COMMON NORMALS: no JVD Resp: COMMON NORMALS: normal respiratory effort, No retractions, No use of accessory muscles and clear to auscultation bilaterally AUSCULTATION: clear to auscultation bilaterally Cardio: COMMON NORMALS: no JVD, regular rate, regular rhythm and No murmurs present (Cardio) RATE: regular rate RHYTHM: regular rhythm GI: COMMON NORMALS: Soft to palpation and No hepatosplenomegaly present AUSCULTATION: Yes normoactive bowel sounds PALPATION: Yes Soft to palpation, No Tenderness to palpation present (GI), No Guarding due to palpation present (GI) and Yes No hepatosplenomegaly present Extremity: COMMON NORMALS: normal to inspection, capillary refill normal, no clubbing, cyanosis or edema, no calf tenderness and no pedal edema Neuro: SENSORIUM/ORIENTATION: Yes oriented to person, Yes oriented to place and Yes oriented to time Skin: COMMON NORMALS: no rashes or lesions noted GENERAL SKIN EXAM: no rashes or lesions noted Course Vital Signs: Vital signs: Vital Signs Temperature 98.2 F 01/11/21 14:27 Pulse Rate 84 01/11/21 15:11 Respiratory Rate 18 01/11/21 15:11 Blood Pressure 159/87 01/11/21 15:11 Pulse Oximetry 95 01/11/21 15:11 MDM - Dizziness MDM Narrative: Medical decision making narrative: Patient continues to have these episodes she needs to complete the work-up may require further evaluation or even pacemaker he is agreeable to stay at this time discussed with Dr. Knox and he will admit orders are written we will put on [facility] floor with telemetry. Discharge Plan Discharge Patient Disposition: Admitted As Inpatient Clinical Impression: Second degree AV block, Mobitz type II, Syncope, Chest pain Condition: Stable Coding Level of Care Code ED Analytical Strategist for Maria Antonia Lacy
[2021-01-11 15:27] LABS: Basophils # 0.1 10^3/uL (0.0-0.1); Basophils % 0.6 %; Eosinophils # 0.1 10^3/uL (0.0-0.8); Eosinophils % 1.3 %; Hematocrit 40.3 % (42.0-52.0); Hemoglobin 13.3 g/dL (11.7-16.6); Lymphocytes # 1.7 10^3/uL (0.8-4.8); Lymphocytes % 20.5 %; Mean Corpuscular Hemoglobin 30.8 pg (28.0-34.0); Mean Corpuscular Volume 93.3 fL (80-94); Mean Platelet Volume 8.8 fL (7.4-10.4); Monocytes # 0.5 10^3/uL (0.2-0.9); Monocytes % 6.2 %; Neutrophils # 5.93 10^3/uL (1.8-7.7); Neutrophils % 71.2 %; Nucleated Red Blood Cells % 0 %; Platelet Count 262 10^3/cmm (130-400); Red Blood Count 4.32 10^6/uL (4.1-5.3); Red Cell Distribution Width 12.6 % (12.1-15.1); White Blood Count 8.3 10^3/uL (4.0-10.0)
--- NOTE | 2021-01-11 15:29 | PC.NURSE ---
ICU was contacted. It was stated by staff in ICU that the room situation may be changing due to attempting to get telemetry on the second floor. ER is to be contacted back.
[2021-01-11 15:36] LABS: Ketone (Acetest) Serum Negative (Negative)
[2021-01-11 15:48] LABS: Blood Urea Nitrogen 7 mg/dL (6-20); Total Bilirubin 0.3 mg/dL (0.15-1.2)
[2021-01-11 15:53] LABS: Potassium 3.7 mmol/L (3.5-5.1)
[2021-01-11 16:03] LABS: Glomerular Filtration Rate 137.9 mL/min (90-130); Sodium 140 mmol/L (136-145)
[2021-01-11 16:04] LABS: Alanine Aminotransferase 20 U/L (0-41); Albumin Level 4.3 g/dL (3.5-5.2); Alkaline Phosphatase 133 IU/L (40-130); Anion Gap 15.7 (5-19); Aspartate Amino Transferase 19 U/L (0-40); Calcium 8.9 mg/dL (8.5-10.5); Carbon Dioxide 26 mmol/L (22-29); Chloride 102 mmol/L (98-107); Glucose 92 mg/dL (65-115); Osmolality Calculated 288 mOsm/kg (285-295); Total Protein 7.3 g/dL (6.6-8.7)
--- NOTE | 2021-01-11 16:23 | ECG_ITS ---
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 Measurements Intervals [place] Rate: 81 P: 35 OR: 153 QRS: 22 QRSD: 93 T: 41 QT: 371 QTc: 431 Interpretive Statements SINUS RHYTHM Compared to ECG 01/09/2021 18:31:12 No significant changes Electronically Signed On 01-11-2021 19:21:30 CDT by Jose Watson M.D. [id number]
[2021-01-11 16:30] LABS: Troponin(5th) Baseline 6 ng/L (0-15)
--- NOTE | 2021-01-11 16:35 | PM.HP ---
Providers/Chief Complaint Admitting Physician: Armaan Montenegro Primary Care Provider: Thomas Gan Chief Complaint: VERTIGO/ DEHYDRATION History of Present Illness David Harvey is a 60 year old male who left AMA this morning after hospitalization for recurrent episodes of presyncope and dizziness. He states that he had an appointment for housing which she could not miss. Now he is back with the same complaints. Please see his H&P and progress notes from the previous hospitalization. The patient presents with complaints of feeling dizzy and lightheaded on multiple occasions. ER physician also reports syncopal episodes. However the patient does not confirm that. No falls or loss of consciousness per patient. It was going on for a while now. Dizziness is more pronounced when he stands up and walks. It is improved when he sits down or lays in the bed. During these episodes occasionally he also experiences heartbeats and palpitations. No chest pain. No shortness of breath. He denies any problems with speech. No focal muscle weakness or sensory loss. Denies any headache. No nausea or vomiting. No diarrhea. No rectal blood. The patient presented to emergency room with similar current complaints in November. At that time his EKG showed Mobitz type II second-degree AV block. At that time the work-up was not done because the patient left the ER. This time his EKG did not show any arrhythmias. However Dr. Watson is consulted due to concerns of cardiac syncopal episodes. Last echo was unremarkable. No stress test is contemplated. The patient reports chronic pain issues, anxiety, and insomnia. He reports taking several medications for this problems including [place]. He denies taking more than he is prescribed. Denies alcohol. Reports tobacco abuse. He also admits to regularly using marijuana for management of anxiety. It is medically prescribed according to the patient Review of Systems General: Reports: 10 or more systems reviewed and unremarkable except in HPI and below Medications/Allergies Home Medications Medication Instructions Recorded Confirmed Last Taken Type baclofen 10 mg tablet 5 - 10 mg PO BID PRN 12/04/20 01/11/21 01/10/21 History gabapentin 400 mg capsule 400 mg PO QID@07,12,14,21 12/04/20 01/11/21 01/11/21 History omeprazole 20 mg capsule,delayed 20 mg PO DAILY@12 12/04/20 01/11/21 01/10/21 History release aripiprazole [Abilify] 5 mg PO DAILY@0700 01/09/21 01/11/21 01/11/21 History diphenhydramine HCl [Sleep Aid 50 mg PO BEDTIME@2100 01/09/21 01/11/21 01/10/21 History (diphenhydramine)] folic acid 1 mg PO DAILY@0700 01/09/21 01/11/21 01/11/21 History hydrocodone-acetaminophen [[place]] 1 tab PO Q8H PRN MDD 3 TABS 01/09/21 01/11/21 01/11/21 02:00 History mirtazapine [Remeron] 15 mg PO BEDTIME@2100 01/09/21 01/11/21 01/10/21 History Allergies Allergy/AdvReac Type Severity Reaction Status Date / Time black pepper AdvReac Mild can't Verified 01/09/21 12:52 breathe PFSH Acute PFSH: Medical History Generalized anxiety disorder Major depressive disorder, recurrent severe without psychotic features Surgical History History of back surgery Family History Other Adopted Social History Smoking and tobacco status: current every day smoker cigarettes Packs smoked per day: 1.5 Years cigarettes smoked: 38 Quit status (tobacco): has tried quititng Number of times tried to quit tobacco: 4 Second hand smoke exposure: Yes Alcohol intake: never Vitals/I&O/Wt Last Vital Signs Temp 98.2 F 01/11/21 14:27 Pulse 84 01/11/21 15:11 Resp 18 01/11/21 15:11 BP 159/87 01/11/21 15:11 Pulse Ox 95 01/11/21 15:11 Weight last 48 hrs Weight 74.843 kg Physical Exam Narrative: EXAM NARRATIVE: The patient is awake alert oriented. No acute distress. Mood and affect are appropriate. Responses are adequate. There is no dysarthria or aphasia. However his responses are slow. Skin is warm and dry. Moist mucous membranes. Neck supple. No JVD Eyes PERRL, extraocular muscles are intact No facial asymmetry. No focal muscle weaknesses. Lungs are clear bilaterally. No respiratory distress Heart S1, S2, regular Abdomen is soft, nontender, bowel sounds are present Extremities no edema sinus or calf tenderness bilaterally. Tremor. Data : 01/11/21 15:05 01/11/21 15:05 A&P Additional A&P Information 60-year-old male with past medical history of anxiety, chronic back pain, on opiates, insomnia, medical marijuana use, history of peptic ulcer disease, previous episodes of recorded Mobitz 2 second-degree AV block who is presenting with complaints of dizziness and lightheadedness. Differential includes orthostatic hypotension, cardiac arrhythmia, polypharmacy. Will order MRI to rule out SUPERVISOR POLE YARD causes of his complaints. PT OT eval and treatment. Might need some help from case management. During his previous hospitalization TSH was normal. Possible arrhythmia. Dr. Watson is consulted. Will wait for his recommendations. To undergo additional cardiac testing. Possible orthostatic hypotension. We will check his orthostatic vital signs. We will hydrate the patient. Polypharmacy. The patient needs some adjustments to his medications. Will discuss with him after the rest of the work-up is done. History of chronic back pain and anxiety. For now we will continue his current home medications. As discussed above adjustments will need to be done prior to discharge. History of peptic ulcer disease. Continue home medication. PPI. History of peripheral neuropathy. Continue home gabapentin. Tobacco abuse. Counseling will be provided. History of dyslipidemia. We will check his fasting lipids in the morning. DVT prophylaxis. Teds and SCDs. I do not expect that the patient will need to stay in the hospital more than 2 midnights. CODE STATUS. The patient wants to be full code. The plan of care was discussed with the patient. He verbalized understanding and agreement Attestations Medical Necessity Statement*: Observation Coding Level of Care Code Acute Apprentice Lineman Third Step for Maria Antonia Lacy
[2021-01-11] MEDS: sodium chloride 0.9% 1,000 ML 75 ML IV ×2 (16:43→20:11)
[2021-01-11] MEDS: HYDROcodone-acetaminophen 10-325 mg Tablet 1 TAB PO (18:33)
--- NOTE | 2021-01-11 19:39 | P.DS_ITS ---
Discharge Providers Date of Admission: 01/09/21 Date of Discharge: January 11, 2021 Attending Provider at Admission: David Honeycutt Attending Provider at Discharge: David Honeycutt Primary Care Provider: Thomas Gan Reason for Visit Reason for Visit: VERTIGO/ DEHYDRATION Hospital Course Hospital Course DC summary for visit [id number] 01/09, leaving early morining 01/11. (Unable to place summary in the appropriate visit). 60-year-old gentleman with history of depression, bipolar disorder, was being assessed in the hospital due to episodes of dizziness, shortness of breath, presyncopal episodes. Over the past year noted 1 syncopal episode, several presyncopal episodes. With history of Mobitz type II AV block, although did not stay for evaluation. Apart from unremarkable chest x-ray, normal troponin series, normal TSH, normal sodium, renal function, CBC, UA, urine drug screen positive for opioids and marijuana, was also assessed by cardiac Doppler which was unremarkable. Head CT showed no intracranial abnormality. Echocardiogram was requested, and showed EF 55-60%. Diastolic function normal. Mild MVR. Mild TVR. On assessment cardiology recommended stress testing which was requested, however, early this morning patient left the hospital before he could be evaluated due to an urgent appointment. He was encouraged to resume his assessment and treatment. Stress testing and event monitor was ordered for him on discharge and he was notified by telephone of these referrals, as well as asked to follow-up with primary care and cardiology in office [place] if not returning to the hospital due to a potentially life-threatening undiagnosed condition. (DC instructions in the discharge screen of visit [id number]). 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 Discharge Data Data Completed and Pending: Completed Studies During Hospitalization Category Date Time Status XR chest 1V naseem ble [id number] Stat Exams 01/11/21 14:22 Completed Pending at discharge Category Date Time Status Basic Metabolic P queta AM LABS Lab 01/12/21 04:00 Ordered Complete Blood Co unt w/Auto AM LABS Lab 01/12/21 04:00 Ordered Complete Blood Co unt w/Auto AM LABS Lab 01/12/21 04:00 Ordered Comprehensive Met abolic Panel AM LA BS Lab 01/12/21 04:00 Ordered Magnesium AM LABS Lab 01/12/21 04:00 Ordered Troponin(5th) 6 h our. Timed Lab 01/11/21 20:23 Ordered MR head wo/w con [id number] Routine MRI 01/11/21 16:28 Ordered Labs from last 24 hours 01/11/21 01/11/21 01/11/21 17:42 15:57 15:05 WBC RBC Hgb Hct MCV MCH MCHC RDW Plt Count MPV Neut % (Auto) Lymph % (Auto) [place] % (Auto) Eos % (Auto) Baso % (Auto) Neut # (Auto) Lymph # (Auto) [place] # (Auto) Eos # (Auto) Baso # (Auto) Nucleated RBC % (a uto) Nucleated RBCs # Sodium Potassium Chloride Carbon Dioxide Anion Gap BUN Creatinine GFR Calculation Glucose Calculated Osmolal ity Calcium Total Bilirubin AST ALT Alkaline Phosphata se Troponin T Baselin e 6 Troponin T 120 Min [place] 6.10 Delta Troponin T 0.10 Total Protein Albumin Globulin Serum Ketones Negative 01/11/21 01/11/21 15:05 15:05 WBC 8.3 RBC 4.32 Hgb 13.3 Hct 40.3 L MCV 93.3 MCH 30.8 MCHC 33.0 RDW 12.6 Plt Count 262 MPV 8.8 Neut % (Auto) 71.2 Lymph % (Auto) 20.5 [place] % (Auto) 6.2 Eos % (Auto) 1.3 Baso % (Auto) 0.6 Neut # (Auto) 5.93 Lymph # (Auto) 1.7 [place] # (Auto) 0.5 Eos # (Auto) 0.1 Baso # (Auto) 0.1 Nucleated RBC % (a uto) 0 Nucleated RBCs # 0.0 Sodium 140 Potassium 3.7 Chloride 102 Carbon Dioxide 26 Anion Gap 15.7 BUN 7 Creatinine 0.6 L GFR Calculation 137.9 H Glucose 92 Calculated Osmolal ity 288 Calcium 8.9 Total Bilirubin 0.3 AST 19 ALT 20 Alkaline Phosphata se 133 H Troponin T Baselin e Troponin T [address] [place] Troponin T Total Protein 7.3 Albumin 4.3 Globulin 3.0 Serum Ketones Vitals: Last Vital Signs Temp 98.9 F 01/11/21 18:33 Pulse 73 01/11/21 18:33 Resp 17 01/11/21 18:33 BP 129/70 01/11/21 18:33 Pulse Ox 96 01/11/21 18:33 Discharge Plan Discharge Patient Disposition: Left Against Medical Advice Condition: Stable Prescriptions: No Action gabapentin 400 mg capsule 400 mg PO QID@07,12,14, RF: 0 baclofen 10 mg tablet 5 - 10 mg PO BID PRN (Reason: Muscle Pain) RF: 0 omeprazole 20 mg capsule,delayed release(DR/EC) 20 mg PO DAILY@12 RF: 0 diphenhydramine HCl [Sleep Aid (diphenhydramine)] 50 mg Capsule 50 mg PO BEDTIME@2100 RF: 0 hydrocodone-acetaminophen [[place]] 10-325 mg Tablet 1 tab PO Q8H MDD 3 TABS PRN (Reason: Pain) RF: 0 folic acid 1 mg Tablet 1 mg PO DAILY@0700 RF: 0 mirtazapine [Remeron] 15 mg tablet 15 mg PO BEDTIME@2100 RF: 0 aripiprazole [Abilify] 5 mg tablet 5 mg PO DAILY@0700 RF: 0 Referrals: Thomas Gan [Primary Care Provider] - Patient Instructions: Opioid Safety Discharge Attestations Time Spent in Discharge Care*: greater than 30 min Quality Metrics Clinical Quality Measures During this hospital stay, did patient experience: None Coding Level of Care Code Acute Chg FW DC note
[2021-01-11] MEDS: nicotine 14 mg Patch 1 PATCH TRANSDERMA (20:06)
[2021-01-11] MEDS: gabapentin 400 mg Capsule PO (20:08)
[2021-01-11] MEDS: mirtazapine 15 mg Tablet PO (21:14)
[2021-01-11 22:14] LABS: Troponin 5 6HR 6.54 ng/L (0-15); Troponin 5 6HR Delta 0.54 ng/L (0-12)
[2021-01-12] VITALS (10 sets, daily range): BP systolic 128–165; BP diastolic 65–86; PULSE 68–94; RESP 16–18; TEMP 36.6–36.8; O2SAT 97–98
[2021-01-12] MEDS: HYDROcodone-acetaminophen 10-325 mg Tablet 1 TAB PO (04:10)
[2021-01-12 06:16] LABS: Eosinophils # 0.1 10^3/uL (0.0-0.8); Eosinophils % 2.3 %; Hematocrit 36.8 % (42.0-52.0); Hemoglobin 12.1 g/dL (11.7-16.6); Lymphocytes # 1.5 10^3/uL (0.8-4.8); Mean Corpuscular HGB Conc 32.9 g/dL (30.0-36.0); Mean Corpuscular Hemoglobin 30.4 pg (28.0-34.0); Mean Corpuscular Volume 92.5 fL (80-94); Mean Platelet Volume 8.7 fL (7.4-10.4); Monocytes # 0.4 10^3/uL (0.2-0.9); Monocytes % 9.3 %; Neutrophils # 1.97 10^3/uL (1.8-7.7); Neutrophils % 49.1 %; Nucleated Red Blood Cells % 0 %; Platelet Count 208 10^3/cmm (130-400); Red Blood Count 3.98 10^6/uL (4.1-5.3); Red Cell Distribution Width 12.6 % (12.1-15.1)
[2021-01-12] MEDS: gabapentin 400 mg Capsule PO (06:16)
[2021-01-12] MEDS: ARIPiprazole 10 mg Tablet 5 MG PO (06:17)
[2021-01-12] MEDS: folic acid 1 mg Tablet PO (06:17)
[2021-01-12 06:42] LABS: Alanine Aminotransferase 19 U/L (0-41); Albumin Level 3.6 g/dL (3.5-5.2); Alkaline Phosphatase 114 IU/L (40-130); Anion Gap 11.1 (5-19); Aspartate Amino Transferase 15 U/L (0-40); Blood Urea Nitrogen 9 mg/dL (6-20); Calcium 8.3 mg/dL (8.5-10.5); Carbon Dioxide 27 mmol/L (22-29); Chloride 106 mmol/L (98-107); Globulin 2.9 g/dL (1.3-4.6); Glomerular Filtration Rate 137.9 mL/min (90-130); Glucose 104 mg/dL (65-115); Osmolality Calculated 289 mOsm/kg (285-295); Potassium 4.1 mmol/L (3.5-5.1); Sodium 140 mmol/L (136-145); Total Bilirubin 0.2 mg/dL (0.15-1.2); Total Protein 6.5 g/dL (6.6-8.7)
[2021-01-12 06:48] LABS: Magnesium 1.8 mg/dL (1.7-2.3)
[2021-01-12] MEDS: nicotine 14 mg Patch 1 PATCH TRANSDERMA (08:29)
--- NOTE | 2021-01-12 08:32 | PC.OT ---
OT screen completed: Pt demonstrated independence with doffing and donning shoes including tying, bed mobility, toilet transfer including ambulating without device without loss of balance. Pt reported symptoms when going from sit to stand and sometimes with standing for long periods. Educated pt on having shower chair and chair in kitchen to help with symptoms and given hand out for information for community resources. No further OT recommended at this time.
--- NOTE | 2021-01-12 12:16 | PC.CHAP ---
Pastoral Care Encounter/Spiritual Assessment Type of Contact [] Declined dock hand visit [] Patient/Family/Request visit [] Outpatient visit [] Follow-up visit [] Physician referral [] Code/Alert [x] Routine visit [] Staff referral [] Actively dying [] Patient sleeping [] Family support [] [] Out of room [] Palliative care [] [] Receiving care in room [] Pre-surgical visit [] Trauma [] Long length of stay [] ICU visit [] Other: Relational/Emotional Strength [x] Patient feels connected with others/family/visitors/staff [] Distress [] Loneliness/isolation [] Abandonment Spirituality of Patient [x] Person of Margarita [x] Attends Temple of their Margarita [x] Believes in Prayer [x] Reads Bible or Tenriism materials [] There are Spiritual issues to be addressed Geoscience Professor Interventions [x] Prayer [x] Active listening [x] Non-anxious presence []x Spiritual/emotional support [] Crisis/trauma care [] Spiritual counseling [] Bereavement support [] Provided bereavement packet [] Provided Bible/devotional materials [] Provided toy/stuffed animal, coloring book to patient or family member [] Provided Communion [] Anointing/Dixon [] Salvation [x] Completed spiritual assessment [] Other: Impact on Illness or Injury [] Angry [] Fearful [] Anxious [] Often cries [] Exhaustion [] Unable to work [] Unable to attend yazidism [] Unable to walk/stand [] Unable to read [] Unable to drive [] Unable to eat/drink [] Unable to sleep [] Unable to be with family [] Patient intubated [] Other: Summary patient feeling better Time spent with patient `0 min
--- NOTE | 2021-01-12 12:45 | PM.PN ---
Subjective Subjective: Interval history: Patient is overall doing well. His tele does not show abnormalities. He was found to have orthostatic hypotension. No heart block on tele. Vitals/I&O/Wt Last Vital Signs Temp 97.8 F 01/12/21 11:58 Pulse 86 01/12/21 11:58 Resp 18 01/12/21 11:58 BP 145/86 01/12/21 11:58 Pulse Ox 98 01/12/21 11:58 01/11/21 01/12/21 01/12/21 22:59 06:59 14:59 Intake Total 980 / 980 1000 / 1000 Balance 980 / 980 1000 / 1000 Weight last 48 hrs Weight 165 lb Physical Exam Const: COMMON NORMALS: no acute distress and patient oriented x3 HENMT: COMMON NORMALS: normocephalic HEAD & SCALP: normocephalic Neck/C-Spine: COMMON NORMALS: no JVD Resp: COMMON NORMALS: normal respiratory effort, No retractions, No use of accessory muscles and clear to auscultation bilaterally AUSCULTATION: clear to auscultation bilaterally Cardio: COMMON NORMALS: no JVD, regular rate, regular rhythm, S1 normal heart sound present and S2 normal heart sound present RATE: regular rate RHYTHM: regular rhythm HEART SOUNDS: S1 normal heart sound present and S2 normal heart sound present GI: COMMON NORMALS: Normal to inspection, nondistended, normoactive bowel sounds present, Soft to palpation, non-tender, No hepatosplenomegaly present, no masses and no bruits PALPATION: Yes Soft to palpation and Yes No hepatosplenomegaly present Extremity: COMMON NORMALS: capillary refill normal, no clubbing, cyanosis or edema, no calf tenderness and no pedal edema Neuro: COMMON NORMALS: patient oriented x3 Psych: COMMON NORMALS: mental status grossly normal Data : 01/12/21 05:43 01/12/21 05:43 A&P Assessment and plan (1) Dizziness: Status: Acute (2) Pre-syncope: Status: Acute Tele monitoring has not revealed any heart block. Found to have orthostatic hypotension ECHO shows normal LV function without significant abnormalities Patient planned to have nuclear stress test tomorrow Avoid rate lowering agents Thank you for involving us with care of this patient. We will continue to follow. Please call with questions Attestations Medical Necessity Statement*: Care expected to cross 2 midnights Coding Level of Care Code Acute Supervisor Waterproofing for Markg Fwd Diagnoses Dizziness R42 Pre-syncope R55
[2021-01-12] MEDS: pantoprazole DR 40 mg Tablet PO (13:47)
[2021-01-12] MEDS: sodium chloride 0.9% 1,000 ML 75 ML IV (13:47)
[2021-01-12] MEDS: gabapentin 300 mg Capsule PO ×3 (13:47→21:15)
[2021-01-12] MEDS: ALPRAZolam 0.25 mg Tablet PO (13:47)
[2021-01-12] MEDS: HYDROcodone-acetaminophen 5-325 mg Tablet 1 TAB PO ×2 (13:56→23:59)
--- NOTE | 2021-01-12 14:31 | P.PN_ITS ---
Subjective Subjective: Interval history: She reports feeling a little better. His orthostatic vital signs revealed significant changes. He still feels dizzy and lightheaded occasionally. No chest pain or shortness of breath. Denies focal weakness or sensory loss. No problems with speech. Medications: Reviewed: Yes Medication Review Details: Generic Name Dose Route Start Last Admin Trade Name Freq PRN Reason Stop Dose Admin Hydrocodone Bitart /Acetaminophen 1 tab 01/12/21 09:18 01/12/21 13:56 Hydrocodone-Acet aminophen 5-325 Mg Tablet PO 1 tab Q6H PRN Administration MODERATE PAIN Aripiprazole 5 mg 01/12/21 07:00 01/12/21 06:17 Aripiprazole 10 Mg Tablet PO 5 mg DAILY@0700 RANDELL Administration Folic Acid 1 mg 01/12/21 07:00 01/12/21 06:17 Folic Acid 1 Mg Tablet PO 1 mg DAILY@0700 RANDELL Administration Gabapentin 300 mg 01/12/21 12:00 01/12/21 13:47 Gabapentin 300 M g Capsule PO 300 mg QID@07,12,14,21 S CH Administration Sodium Chloride 1,000 mls @ 75 ml s/hr 01/11/21 16:30 01/12/21 13:47 Sodium Chloride 0.9% IV 75 mls/hr .[id number] RANDELL Administration Mirtazapine 15 mg 01/11/21 21:00 01/11/21 21:14 Mirtazapine 15 M g Tablet PO 15 mg BEDTIME@2100 RANDELL Administration Nicotine 1 patch 01/12/21 09:00 01/12/21 08:29 Nicotine 14 Mg P atch TRANSDERMA 1 patch DAILY RANDELL Administration Pantoprazole Sodiu m 40 mg 01/12/21 12:00 01/12/21 13:[address] 40 Mg Tablet PO 40 mg DAILY@12 RANDELL Administration Vitals/I&O/Wt Last Vital Signs Temp 97.8 F 01/12/21 11:58 Pulse 86 01/12/21 11:58 Resp 18 01/12/21 11:58 BP 145/86 01/12/21 11:58 Pulse Ox 98 01/12/21 11:58 01/11/21 01/12/21 01/12/21 22:59 06:59 14:59 Intake Total 980 / 980 1480 / 1480 Balance 980 / 980 1480 / 1480 Weight last 48 hrs Weight 74.843 kg Physical Exam Narrative: EXAM NARRATIVE: The patient is awake alert oriented. No acute distress. Mood and affect are appropriate. Responses are adequate. There is no dysarthria or aphasia. However his responses are slow. Skin is warm and dry. Moist mucous membranes. Neck supple. No JVD Eyes PERRL, extraocular muscles are intact No facial asymmetry. No focal muscle weaknesses. Lungs are clear bilaterally. No respiratory distress Heart S1, S2, regular Abdomen is soft, nontender, bowel sounds are present Extremities no edema sinus or calf tenderness bilaterally. No tremor. Data : 01/12/21 05:43 01/12/21 05:43 A&P Additional A&P Information 60-year-old male with past medical history of anxiety, chronic back pain, on opiates, insomnia, medical marijuana use, history of peptic ulcer disease, previous episodes of recorded Mobitz 2 second-degree AV block who is presenting with complaints of dizziness and lightheadedness. Differential includes orthostatic hypotension, cardiac arrhythmia, polypharmacy. Waiting for MRI report. Possible arrhythmia. Dr. Watson is consulted. Will wait for his recommendations. Will undergo stress test. Orthostatic blood pressure drop. Suspect this is due to his medications. Necessary adjustments are discussed and done. We will continue monitoring. Polypharmacy. The patient needs some adjustments to his medications. Discussed with the patient. He verbalized understanding. History of chronic back pain and anxiety. For now we will continue his current home medications with some adjustments. History of peptic ulcer disease. Continue home medication. PPI. History of peripheral neuropathy. Continue home medications. Tobacco abuse. Counseling will be provided. Nicotine patch. History of dyslipidemia. We will check his fasting lipids in the morning. DVT prophylaxis. Teds and SCDs. CODE STATUS. The patient wants to be full code. The plan of care was discussed with the patient. He verbalized understanding and agreement Attestations Medical Necessity Statement*: Probably home tomorrow Coding Level of Care Code Acute Medical Administrative Assistant for Maria Antonia Lacy
[2021-01-12] MEDS: gadobenate dimeglumine 20 mL vial IV (14:47)
--- NOTE | 2021-01-12 16:28 | MR_ITS ---
WS: [id number] MRI BRAIN WITH AND WITHOUT CONTRAST HISTORY: dizziness, syncope COMPARISON: 01/09/2021 TECHNIQUE: Multiplanar imaging performed through the brain with MultiHance 17 ml's IV. No acute infarcts are seen. Karimi-white matter differentiation is well preserved. Foci of increased T2 and FLAIR signal hyperintensities throughout the white matter. No large territor y infarcts. No susceptibility artifacts or prior lacunar infarcts. Ventricles and extra-axial spaces are normal. Clivus and pituitary gland are normal. Visualized posterior fossa and brainstem are also normal. Postcontrast images are negative for masses or vascular malformations. Dural venous sinuses are normal. Paranasal sinuses: Well aerated with no significant disease. Mastoid air cells: Normal. Calvarium and scalp: Normal. MR/MR head wo/w con [id number] IMPRESSION: 1. No evidence for acute infarct or mass. 2. Mild chronic microvascular ischemic disease with no prior infarct.
[2021-01-12] MEDS: baclofen 10 mg Tablet 5 MG PO (17:49)
[2021-01-12] MEDS: mirtazapine 15 mg Tablet PO (21:15)
[2021-01-13] VITALS (7 sets, daily range): BP systolic 143–152; BP diastolic 72–83; PULSE 70–79; RESP 16–18; TEMP 36.4–36.7; O2SAT 97–98
[2021-01-13] MEDS: baclofen 10 mg Tablet 5 MG PO (05:01)
[2021-01-13] MEDS: folic acid 1 mg Tablet PO (06:20)
[2021-01-13] MEDS: ARIPiprazole 10 mg Tablet 5 MG PO (06:20)
[2021-01-13] MEDS: sodium chloride 0.9% 1,000 ML 75 ML IV (06:21)
[2021-01-13] MEDS: HYDROcodone-acetaminophen 5-325 mg Tablet 1 TAB PO (06:24)
[2021-01-13] MEDS: nicotine 14 mg Patch 1 PATCH TRANSDERMA (09:34)
[2021-01-13] MEDS: gabapentin 300 mg Capsule PO (09:34)
--- NOTE | 2021-01-13 11:08 | PM.DCS ---
Discharge Providers Date of Admission: 01/11/21 15:00 Date of Discharge: January 13, 2021 Attending Provider at Admission: Araman Montenegro Attending Provider at Discharge: Armaan Montenegro Primary Care Provider: Thomas Gan Diagnoses at Discharge Discharge Diagnosis (1) Dizziness: Status: Acute (2) Pre-syncope: Status: Acute Reason for Visit Reason for Visit: VERTIGO/ DEHYDRATION Hospital Course Hospital Course 60-year-old male with past medical history of anxiety, chronic back pain, on opiates, insomnia, medical marijuana use, history of peptic ulcer disease, previous episodes of recorded Mobitz 2 second-degree AV block who is presenting with complaints of dizziness and lightheadedness. Differential includes orthostatic hypotension, polypharmacy. MRI brain was negative. Possible arrhythmia. Dr. Watson is consulted. Echo was unremarkable. Will need outpatient follow-up with Dr. Watson. The patient will need outpatient event monitor placement and stress test. Discussed with the patient. He verbalized understanding of the instructions. Discussed with Dr. Watson. Orthostatic blood pressure drop. Suspect this is due to his medications. Necessary adjustments are discussed and done. Polypharmacy. The patient needs some adjustments to his medications. Discussed with the patient. He verbalized understanding of the instructions. History of chronic back pain and anxiety. For now we will continue his current home medications with some adjustments. History of peptic ulcer disease. Continue home PPI. History of peripheral neuropathy. Continue home medications with adjusted dosing. Tobacco abuse. Counseling provided. History of dyslipidemia. Statin. Currently the patient is doing well. He denies any active complaints. Denies dizziness or lightheadedness. Eager to go home. No weakness. Denies chest pain or shortness of breath. No palpitations. Physical Exam Narrative: EXAM NARRATIVE: The patient is awake alert oriented. No acute distress. Mood and affect are appropriate. Responses are adequate. There is no dysarthria or aphasia. However his responses are slow. Skin is warm and dry. Moist mucous membranes. Neck supple. No JVD Eyes PERRL, extraocular muscles are intact No facial asymmetry. No focal muscle weaknesses. Lungs are clear bilaterally. No respiratory distress Heart S1, S2, regular Abdomen is soft, nontender, bowel sounds are present Extremities no edema sinus or calf tenderness bilaterally. No tremor. Discharge Data Data Completed and Pending: Completed Studies During Hospitalization Category Date Time Status XR chest 1V naseem ble [id number] Stat Exams 01/11/21 14:22 Completed MR head wo/w con [id number] Routine MRI 01/12/21 16:28 Completed Pending at discharge Category Date Time Status Complete Blood Co unt w/Auto AM LABS Lab 01/14/21 04:00 Ordered Magnesium AM LABS Lab 01/14/21 04:00 Ordered Renal Function Pa roz AM LABS Lab 01/14/21 04:00 Ordered Vitals: Last Vital Signs Temp 97.7 F 01/13/21 07:34 Pulse 75 01/13/21 07:34 Resp 18 01/13/21 07:34 BP 149/72 01/13/21 07:34 Pulse Ox 98 01/13/21 07:34 Discharge Plan Discharge Patient Disposition: Home Condition: Stable Prescriptions: New baclofen 10 mg Tablet 5 mg PO BID PRN (Reason: Muscle Pain) Qty: 0 RF: 0 Continued omeprazole 20 mg capsule,delayed release(DR/EC) 20 mg PO DAILY@12 RF: 0 folic acid 1 mg Tablet 1 mg PO DAILY@0700 RF: 0 mirtazapine [Remeron] 15 mg tablet 15 mg PO BEDTIME@2100 RF: 0 aripiprazole [Abilify] 5 mg tablet 5 mg PO DAILY@0700 RF: 0 Changed gabapentin 400 mg capsule 200 mg PO QID@07,,, Qty: 0 RF: 0 hydrocodone-acetaminophen 10-325 mg Tablet 0.5 tab PO Q8H MDD 3 TABS PRN (Reason: Pain) Qty: 0 RF: 0 Discontinued baclofen 10 mg tablet 5 - 10 mg PO BID PRN (Reason: Muscle Pain) RF: 0 diphenhydramine HCl [Sleep Aid (diphenhydramine)] 50 mg Capsule 50 mg PO BEDTIME@2100 RF: 0 Discharge Orders: Discharge Order (Routine); Ordered 01/13/21 Ordered By: Armaan Montenegro Referrals: Jose Watson M.D [Physician] - 4-7 days (Outpatient event monitor placement and stress test.) Thomas Gan [Primary Care Provider] - 01/19/21 2:00 pm Discharge Diet: Usual diet Discharge Activity: Resume usual activity Patient Instructions: Opioid Safety Activity Restrictions/Additional Instructions: Please come back to emergency room if you develop any new episodes of dizziness or lightheadedness, confusion, falls, loss of consciousness, chest pain, palpitations, diaphoresis, or any other new complaints. Please follow-up with Dr. Watson, heart doctor, who will do additional testing to evaluate your heart (event monitor placement and stress test) Discharge Attestations Time Spent in Discharge Care*: less than 30 min Quality Metrics Clinical Quality Measures During this hospital stay, did patient experience: None Coding Level of Care Code Acute Chg FW DC note Diagnoses Dizziness R42 Pre-syncope R55
--- NOTE | 2021-01-13 11:21 | P.PN_ITS ---
Subjective Subjective: Interval history: Patient is doing well. Denies complaints of chest pain, shortness of breath or palpitations. he did not have any further symptoms of dizziness since coming to hospital. Was found to have orthostatic hypotension Vitals/I&O/Wt Last Vital Signs Temp 98.0 F 01/13/21 11:17 Pulse 79 01/13/21 11:17 Resp 18 01/13/21 11:17 BP 150/83 01/13/21 11:17 Pulse Ox 98 01/13/21 11:17 01/12/21 01/13/21 01/13/21 22:59 06:59 14:59 Intake Total 360 / 1840 1960 / 3800 240 / 240 Balance 360 / 1840 1960 / 3800 240 / 240 Weight last 48 hrs Weight 165 lb Physical Exam Const: COMMON NORMALS: no acute distress and patient oriented x3 HENMT: COMMON NORMALS: normocephalic HEAD & SCALP: normocephalic Neck/C-Spine: COMMON NORMALS: no JVD Resp: COMMON NORMALS: normal respiratory effort, No retractions, No use of accessory muscles and clear to auscultation bilaterally AUSCULTATION: clear to auscultation bilaterally Cardio: COMMON NORMALS: no JVD, regular rate, regular rhythm, S1 normal heart sound present and S2 normal heart sound present RATE: regular rate RHYTHM: regular rhythm HEART SOUNDS: S1 normal heart sound present and S2 normal heart sound present GI: COMMON NORMALS: Normal to inspection, nondistended, normoactive bowel sounds present, Soft to palpation, non-tender, No hepatosplenomegaly present, no masses and no bruits PALPATION: Yes Soft to palpation and Yes No hepatosplenomegaly present Extremity: COMMON NORMALS: capillary refill normal, no clubbing, cyanosis or edema, no calf tenderness and no pedal edema Neuro: COMMON NORMALS: patient oriented x3 Psych: COMMON NORMALS: mental status grossly normal Data : 01/12/21 05:43 01/12/21 05:43 A&P Assessment and plan (1) Dizziness: Status: Acute (2) Pre-syncope: Status: Acute Patient had documented orthostatic hypotension. Symptoms correlate with that. There is a documentation of mobitz type 2 in past however no evidence on current visit Patient can be discharged from our standpoint with outpatient event monitor for 30 days, stress test and outpatient cardiology follow up. ECHO shows normal LV function without significant abnormalities Avoid rate lowering agents Thank you for involving us with care of this patient. Please call with questions Attestations Medical Necessity Statement*: Care expected to cross 2 midnights Coding Level of Care Code Acute Salesperson Flowers for Maria Antonia Lacy Diagnoses Dizziness R42 Pre-syncope R55
--- NOTE | 2021-01-13 13:07 | PC.NURSE ---
Pt discharged home. Pts IV removed no redness or swelling noted. Pts discharge instructions given along with prescriptions and follow up appointments. Pt had no c/o pain or discomfort at the time of discharge.
--- NOTE | 2021-01-13 18:15 | PC.RESP ---
SMoking Cessation information sent to patient.
== END 2021-01-13 13:05 | disposition home or self-care (01) ==
LOC: ER 15:21 → MEDSURG 18:52 → ICU 01-12 12:19
PROVIDERS: Admitting Provider Internal Medicine; Emergency Provider Family Medicine; PCP Family Medicine; Visit Provider Internal Medicine
DX: R42 Dizziness and giddiness (principal); R55 Syncope and collapse; F41.9 Anxiety disorder, unspecified; M54.9 Dorsalgia, unspecified; G89.29 Other chronic pain; Z79.891 Long term (current) use of opiate analgesic; G47.00 Insomnia, unspecified; Z87.11 Personal history of peptic ulcer disease; I44.1 Atrioventricular block, second degree; Z79.899 Other long term (current) drug therapy; G62.9 Polyneuropathy, unspecified; E78.5 Hyperlipidemia, unspecified; F17.210 Nicotine dependence, cigarettes, uncomplicated; F33.9 Major depressive disorder, recurrent, unspecified
CPT/HCPCS: 36415; 70553; 71045; 80053; 82009; 83735; 84484; 85025; 93005; 96360; 96361; 97161; 99285; A9577; G0378; J7030

== ENCOUNTER → 2021-04-08 08:16 | Outpatient (BNVA) | payer MEDICAID, SELFPAY | PROVIDERS: PCP Family Medicine; Visit Provider Counselor Professional | DX: F60.9 Personality disorder, unspecified (principal); F31.12 Bipolar disorder, current episode manic without psychotic features, moderate; F40.10 Social phobia, unspecified; F10.21 Alcohol dependence, in remission; F14.21 Cocaine dependence, in remission | CPT/HCPCS: 90834 ==

== ENCOUNTER → 2021-04-13 08:30 | Outpatient (BNVA) | payer MEDICAID, SELFPAY | PROVIDERS: PCP Family Medicine; Visit Provider Counselor Professional | DX: F60.9 Personality disorder, unspecified (principal); F31.12 Bipolar disorder, current episode manic without psychotic features, moderate; F40.10 Social phobia, unspecified; F10.21 Alcohol dependence, in remission; F14.21 Cocaine dependence, in remission | CPT/HCPCS: 90834 ==

== ENCOUNTER → 2021-04-27 10:39 | Outpatient (BNVA) | payer MEDICAID, SELFPAY | PROVIDERS: PCP Family Medicine; Visit Provider Counselor Professional | DX: F33.2 Major depressive disorder, recurrent severe without psychotic features (principal); F41.1 Generalized anxiety disorder; F14.21 Cocaine dependence, in remission; F10.21 Alcohol dependence, in remission; F40.10 Social phobia, unspecified; F60.9 Personality disorder, unspecified; F31.12 Bipolar disorder, current episode manic without psychotic features, moderate | CPT/HCPCS: 90834 ==

== ENCOUNTER → 2021-05-04 09:48 | Outpatient (BNVA) | payer MEDICAID, SELFPAY | PROVIDERS: PCP Family Medicine; Visit Provider Counselor Professional | DX: F33.2 Major depressive disorder, recurrent severe without psychotic features (principal); F41.1 Generalized anxiety disorder; F14.21 Cocaine dependence, in remission; F10.21 Alcohol dependence, in remission; F40.10 Social phobia, unspecified; F60.9 Personality disorder, unspecified; F31.12 Bipolar disorder, current episode manic without psychotic features, moderate | CPT/HCPCS: 90834 ==

== ENCOUNTER → 2021-05-12 09:35 | Outpatient (BNVA) | payer MEDICAID, SELFPAY | PROVIDERS: PCP Family Medicine; Visit Provider Counselor Professional | DX: F33.2 Major depressive disorder, recurrent severe without psychotic features (principal); F41.1 Generalized anxiety disorder; F14.11 Cocaine abuse, in remission; F40.10 Social phobia, unspecified; F60.9 Personality disorder, unspecified; F31.12 Bipolar disorder, current episode manic without psychotic features, moderate | CPT/HCPCS: 90834 ==

== ENCOUNTER → 2021-05-20 09:33 | Outpatient (BNVA) | payer MEDICAID, SELFPAY | PROVIDERS: PCP Family Medicine; Visit Provider Counselor Professional | DX: F33.2 Major depressive disorder, recurrent severe without psychotic features (principal); F60.9 Personality disorder, unspecified; F31.12 Bipolar disorder, current episode manic without psychotic features, moderate; F40.10 Social phobia, unspecified; F10.21 Alcohol dependence, in remission; F14.21 Cocaine dependence, in remission; F12.20 Cannabis dependence, uncomplicated; F41.1 Generalized anxiety disorder | CPT/HCPCS: 90834 ==

== ENCOUNTER → 2021-05-27 11:41 | Outpatient (BNVA) | payer MEDICAID, SELFPAY | PROVIDERS: PCP Family Medicine; Visit Provider Counselor Professional | DX: F33.2 Major depressive disorder, recurrent severe without psychotic features (principal); F31.12 Bipolar disorder, current episode manic without psychotic features, moderate; F60.9 Personality disorder, unspecified; F40.10 Social phobia, unspecified; F10.21 Alcohol dependence, in remission; F14.21 Cocaine dependence, in remission; F12.20 Cannabis dependence, uncomplicated; F41.1 Generalized anxiety disorder | CPT/HCPCS: 90834 ==

== ENCOUNTER 2022-07-13 13:17 | Outpatient (CLI) | payer OTHER, SELFPAY ==
--- NOTE | 2022-07-13 13:32 | XR_ITS ---
WS: [id number] Exam: XR lumbar spine 2-3V* [id number] Date/Time of Exam: 07/13/2022 1:49 PM Reason For Exam: BACK PAIN No fracture or dislocation. Degenerative disc narrowing at L5-S1 with spondylosis. Posterior elements remain intact. Remaining disc spaces are preserved. XR/XR lumbar spine 2-3V* [id number] IMPRESSION: 1. Degenerative changes at the L5-S1 disc level as noted above. 2. No other significant finding.
== END 2022-07-13 13:18 | disposition home or self-care (01) ==
LOC: RAD 13:20
PROVIDERS: PCP Family Medicine; Visit Provider Dermatology
DX: Z02.71 Encounter for disability determination (principal); M54.50 Low back pain, unspecified
CPT/HCPCS: 72100